=== PATIENT | male | born 1955 | race American Indian/Alaskan Native ===

== ENCOUNTER 2017-06-06 17:43 | Inpatient (IN) | payer MEDICARE, OTHER ==
[2017-06-06] MEDS ORDERED: Sodium Chloride 0.9% 1,000 ML IV STA (18:27)
--- NOTE | 2017-06-06 18:27 | C.PDOC ---
History Of Present Illness 62 y/o M NHR c PMHx HIV, COPD, HTN, CVA with residual R sided weakness sent from [place] for finding of pneumonia on CXR. Patient has been having cough productive of sputum, subjective fever. Denies pain, dyspnea, vomiting, diarrhea. Reports poor appetite and general weakness. Time Seen by Provider: 06/06/17 18:02 Chief Complaint (Nursing): Cough, Cold, Congestion Past Medical History Vital Signs: Last Vital Signs Temp 97.8 F 06/06/17 18:01 Pulse 74 06/06/17 18:01 Resp 21 06/06/17 18:01 BP 127/78 06/06/17 18:01 Pulse Ox 98 06/06/17 18:26 Family History: States: No Known Family Hx Review Of Systems Except As Marked, All Systems Reviewed And Found Negative. Cardiovascular: Negative for: Chest Pain Respiratory: Negative for: Shortness of Breath Physical Exam - Physical Exam Additional Physical Exam Comments: Constitutional: No acute distress. Head: Normocephalic. Atraumatic. Eyes: PERRL. EOMI. ENT: Dry mucous membranes. Neck: Supple. Cardiovascular: Regular rate. Radial pulses 2+ bilaterally. Chest: No tenderness. Respiratory: Rhonchi at RLL. GI: Soft. Nontender. Back: No CVA tenderness. Musculoskeletal: No tenderness or swelling of extremities. Skin: No rash. Neurologic: Alert, R motor weakness. ED Course And Treatment - Laboratory Results Result Diagrams: 06/06/17 18:34 06/06/17 18:34 O2 Sat by Pulse Oximetry: 98 Medical Decision Making Medical Decision Making: CXR shows patchy infiltrate of RLL. Mild leukocytosis. Dr. Hampton accepts patient to her service. Disposition Discussed With : Karen Hampton Doctor Will See Patient In The: Hospital - Disposition Disposition: HOSPITALIZED Disposition Time: 21:24 Condition: GUARDED Forms: [employer] (Faroese) - POA Core Measure Indicators: Pneumonia - Clinical Impression Clinical Impression: Pneumonia
[2017-06-06] MEDS ORDERED: Azithromycin 500 MG in Sodium Chloride 0.9% 250 ML IVPB STA (18:28)
[2017-06-06] MEDS ORDERED: Sodium Chloride 0.9% 1,000 ML ONE (18:36)
[2017-06-06 18:42] LABS: BASO % 0.3 % (0.0-2.0); EOS # 0.1 K/uL (0.0-0.7); EOS % 0.5 % (0.0-4.0); HEMOGLOBIN 15.3 g/dL (12.0-18.0); LYMPH % 25.1 % (20.0-40.0); MEAN CELL VOLUME 97.6 fL (80.0-94.0); MEAN CORPUSCULAR HEMOGLOBIN 32.8 pg (27.0-31.0); MEAN CORPUSCULAR HGB CONC 33.6 g/dL (33.0-37.0); MEAN PLATELET VOLUME 8.8 fL (7.2-11.7); MONO # 0.9 K/uL (0.0-0.8); MONO % 7.3 % (0.0-10.0); NEUT % 66.8 % (50.0-75.0); NRBC % 0.2 % (0.0-2.0); RBC 4.68 Mil/uL (4.40-5.90); RED CELL DISTRIBUTION WIDTH 13.8 % (11.5-14.5); WHITE BLOOD COUNT 11.9 K/uL (4.8-10.8)
[2017-06-06 18:52] LABS: CALCIUM 9.4 mg/dl (8.6-10.4)
[2017-06-06 18:55] LABS: INR 1.2; PROTHROMBIN TIME 13.8 SECONDS (9.7-12.2)
[2017-06-06 18:56] LABS: ALB/GLOB RATIO 0.7 (1.0-2.1)
[2017-06-06] MEDS ORDERED: DiphenhydrAMINE 50 mg/ml Inj IVP STA (20:20)
[2017-06-06] MEDS ORDERED: DiphenhydrAMINE 50 mg/ml Inj ONE (20:27)
[2017-06-06 20:48] LABS: SQUAMOUS EPITHIAL 2 /hpf (0-5); URINE BACTERIA RARE (<OCC); URINE BILIRUBIN NEGATIVE (NEGATIVE); URINE BLOOD 2+ (NEGATIVE); URINE CLARITY Clear (Clear); URINE COLOR Yellow (YELLOW); URINE GLUCOSE (UA) NORMAL (Normal); URINE LEUKOCYTE ESTERASE TRACE Leu/uL (Negative); URINE NITRATE NEGATIVE (NEGATIVE); URINE PROTEIN 2+ mg/dL (NEGATIVE)
[2017-06-06] MEDS ORDERED: cefTRIAXone IV 1 gm in Dextros 50 ML IVPB ONE ×2 (21:22→21:48)
[2017-06-07 00:21] VITALS: RESP 20
--- NOTE | 2017-06-07 08:03 | RAD ---
HISTORY: cough COMPARISON: No prior. TECHNIQUE: Chest PA and lateral FINDINGS: LUNGS: Heterogeneous lucency is seen scattered throughout the bilateral lung fried combine with fibrotic changes and flattening the bilateral hemidiaphragms. Anteroposterior extension of the chest is also appreciated. The findings indicate COPD. Fibrosis of the bilateral costophrenic sulci is favored over trace pleural effusions. No pneumothorax bilaterally. No definite alveolar infiltrate grossly appreciable. Reticular markings at the mid right chest are somewhat more prominent than throughout the remainder of both lung fried to this may be a chronic feature. Acute interstitial process is not completely excluded. Clinically correlate further. PLEURA: As above. CARDIOVASCULAR: Normal size heart. Attenuation of the peripheral pulmonary arterial pattern may indicate pulmonary artery hypertension. OSSEOUS STRUCTURES: No significant abnormalities. VISUALIZED UPPER ABDOMEN: Normal. OTHER FINDINGS: None. IMPRESSION: Extensive COPD changes are identified. Fibrosis is favored over trace effusions blunting the bilateral costophrenic sulci. Promise of reticular markings in the mid right chest may be chronic but an acute interstitial process not excluded here.
--- NOTE | 2017-06-07 11:00 | CARD ---
APPROVED REPORT EKG Measurement Heart [id number] <Conclusion> Normal sinus rhythm Normal ECG
[2017-06-07 12:25] LABS: BLOOD UREA NITROGEN 32 mg/dL (9-20); CALCIUM 8.5 mg/dl (8.6-10.4); GFR AFRICAN-AMERICAN > 60; GFR NON-AFRICAN AMERICAN 56
[2017-06-07] MEDS ORDERED: Benzocaine/Menthol (Cepacol) Lozenge PO PRN (12:40)
[2017-06-07] MEDS: guaiFENesin 100 mg/5 ml Syrup UD PO PRN (13:45)
--- NOTE | 2017-06-07 16:37 | CP.PCM.CON ---
History of Present Illness - History of Present Illness History of Present Illness: 62 y/o M NHR c PMHx HIV, COPD, HTN, CVA with residual R sided weakness sent from [place] for finding of pneumonia on CXR. Patient has been having cough productive of sputum, subjective fever. Denies pain, dyspnea, vomiting, diarrhea. Reports poor appetite and general weakness. Family History: States: No Known Family Hx Review Of Systems Except As Marked, All Systems Reviewed And Found Negative. Cardiovascular: Negative for: Chest Pain Respiratory: Negative for: Shortness of Breath Review of Systems - Constitutional Constitutional: As Per HPI - EENT Eyes: absent: As Per HPI, Blind Spots, Blurred Vision, Change in Vision, Decreased Night Vision, Diplopia, Discharge, Dry Eye, Exophthalmos, Floaters, Irritation, Itchy Eyes, Loss of Peripheral Vision, Pain, Photophobia, Requires Corrective Lenses, Sees Flashes, Spots in Vision, Tunnel Vision, Other Visual Disturbances, Loss of Vision, Other Ears: absent: As Per HPI, Decreased Hearing, Ear Discharge, Ear Pain, Tinnitus, Abnormal Hearing, Disequilibrium, Dizziness, Other Nose/Mouth/Throat: absent: As Per HPI, Epistaxis, Nasal Congestion, Nasal Discharge, Nasal Obstruction, Nasal Trauma, Nose Pain, Post Nasal Drip, Sinus Pain, Sinus Pressure, Bleeding Gums, Change in Voice, Dental Pain, Dry Mouth, Dysphagia, Halitosis, Hoarsness, Lip Swelling, Mouth Lesions, Mouth Pain, Odynophagia, Sore Throat, Throat Swelling, Tongue Swelling, Facial Pain, Neck Pain, Neck Mass, Other - Cardiovascular Cardiovascular: absent: As Per HPI, Acrocyanosis, Chest Pain, Chest Pain at Rest , Chest Pain with Activity, Claudication, Diaphoresis, Dyspnea, Dyspnea on Exertion, Edema, Irregular Heart Rhythm, Pain Radiating to Arm/Neck/Jaw, Leg Edema, Leg Ulcers, Lightheadedness, Orthopnea, Palpitations, Paroxysmal Nocturnal Dyspnea, Pedal Edema, Radiating Pain, Rapid Heart Rate, Slow Heart Rate, Syncope, Other - Respiratory Respiratory: As Per HPI - Gastrointestinal Gastrointestinal: absent: As Per HPI, Abdominal Pain, Belching, Bloating, Change in Bowel Habits, Change in Stool Character, Coffee Ground Emesis, Constipation, Cramping, Diarrhea, Dyspepsia, Dysphagia, Early Satiety, Excessive Flatus, Fecal Incontinence, Heartburn, Hematemesis, Hematochezia, Loose Stools, Melena, Nausea, Odynophagia, Temesmus, Vomiting, Other - Genitourinary Genitourinary: absent: As Per HPI, Change in Urinary Stream, Difficulty Urinating, Dysuria, Flank Pain, Hematuria, Pyuria, Nocturia, Urinary Incontinence, Urinary Frequency, Urinary Hesitance, Urinary Urgency, Voiding Freq/Small Amts, Freq UTI, Hx Renal/Bladder Calculi, Hx /Renal Surgery, Bladder Distension, Other - Musculoskeletal Musculoskeletal: absent: As Per HPI, Abnormal Gait, Arthralgias, Atrophy, Back Pain, Deformity, Joint Swelling, Limited Range of Motion, Loss of Height, Muscle Cramps, Muscle Weakness, Myalgias, Neck Pain, Numbness, Radiating Pain into Limb, Stiffness, Tingling, Other - Integumentary Integumentary: absent: As Per HPI, Acne, Alopecia, Bleeding Lesions, Change in Hair, Change in Nails, Change in Pigmentation, Changing Lesions, Dry Skin, Erythema, Furuncle, Hirsutism, Lesions, New Lesions, Non-Healing Lesions, Photosensitivity, Pruritus, Rash, Skin Pain, Skin Ulcer, Sores, Striae, Swelling , Unusual Bruising, Wounds, Jaundice, Other - Neurological Neurological: absent: As Per HPI, Abnormal Gait, Abnormal Hearing, Abnormal Movements, Abnormal Speech, Behavioral Changes, Burning Sensations, Confusion, Convulsions, Disequilibrium, Dizziness, Numbness, Focal Weakness, Frequent Falls , Headaches, Lack of Coordination, Loss of Vision, Memory Loss, Paresthesias, Radicular Pain, Restless Legs, Sensory Deficit, Syncope, Tingling, Tremor, Vertigo, Weakness, Other Visual Disturbances, Other - Psychiatric Psychiatric: absent: As Per HPI, Abnormal Sleep Pattern, Anhedonia, Anxiety, Auditory Hallucinations, Behavioral Changes, Change in Appetite, Change in Libido, Confusion, Depression, Difficulty Concentrating, Hallucinations, Homicidal Ideation, Hopelessness, Irritability, Memory Loss, Mood Swings, Panic Attacks, Paranoia, Suicidal Ideation, Visual Hallucinations, Tactile Hallucinations, Other - Endocrine Endocrine: absent: As Per HPI, Change in Body Appearance, Change in Libido, Cold Intolorance, Deepening of Voice, Excessive Sweating, Fatigue, Flushing, Heat Intolorance, Increase in Ring/Shoe/Hat Size, Palpitations, Polydipsia, Polyphagia, Polyuria, Other Past Patient History - Past Medical History & Family History Past Medical History?: Yes - Past Social History Smoking Status: Current Some Days Smoker - PULMONARY Hx Respiratory Disorders: Yes Hx Chronic Obstructive Pulmonary Disease (COPD): Yes - NEUROLOGICAL Hx Neurological Disorder: Yes HX Cerebrovascular Accident: Yes (right side weakness) - HEENT Hx HEENT Problems: No - RENAL Hx Chronic Kidney Disease: Yes Hx Renal Failure: Yes - ENDOCRINE/METABOLIC Hx Endocrine Disorders: No - HEMATOLOGICAL/ONCOLOGICAL Hx Blood Disorders: Yes Hx Hepatitis C: Yes Hx Human Immunodeficiency Virus (HIV): Yes - MUSCULOSKELETAL/RHEUMATOLOGICAL Hx Falls: No - GASTROINTESTINAL Hx Gastrointestinal Disorders: No - GENITOURINARY/GYNECOLOGICAL Hx Genitourinary Disorders: No - PSYCHIATRIC Hx Psychophysiologic Disorder: No Hx Substance Use: No - SURGICAL HISTORY Hx Surgeries: Yes Other/Comment: right kidney removal - ANESTHESIA Hx Anesthesia: Yes Hx Anesthesia Reactions: No Meds Allergies/Adverse Reactions: Allergies Allergy/AdvReac Type Severity Reaction Status Date / Time No Known Allergies Allergy Verified 06/06/17 18:13 - Medications Medications: Current Medications Abacavir/Lamivudine (Epzicom) 1 tab PO DAILY [facility] Aspirin (Aspirin Chewable) 81 mg PO DAILY [facility] Benzocaine/Menthol (Cepacol Sore Throat) 1 emilee PO Q6H PRN PRN Reason: Sore Throat Last Admin: 06/07/17 13:46 Dose: 1 emilee Citalopram Hydrobromide (Celexa) 10 mg PO DAILY [facility] Clopidogrel Bisulfate (Plavix) 75 mg PO DAILY [facility] Docusate Sodium (Colace) 100 mg PO DAILY [facility] Guaifenesin (Robitussin) 100 mg PO Q4H PRN PRN Reason: Cough Last Admin: 06/07/17 13:45 Dose: 100 mg Heparin Sodium (Porcine) (Heparin) 5,000 units SC Q12 [facility] Last Admin: 06/07/17 09:25 Dose: 5,000 units Ceftriaxone Sodium 1 gm/ (Sodium Chloride) 100 mls @ 100 mls/hr IVPB Q12H [facility] Last Admin: 06/07/17 11:30 Dose: 100 mls/hr Azithromycin 500 mg/ Dextrose 250 mls @ 167 mls/hr IVPB Q24H [facility] Last Admin: 06/07/17 10:33 Dose: 167 mls/hr Metoprolol Tartrate (Lopressor) 25 mg PO Q12H [facility] Pneumococcal Polyvalent Vaccine (Pneumovax 23 Vaccine) 0.5 ml IM .ONCE ONE Stop: 06/09/17 10:01 Raltegravir (Isentress) 400 mg PO BID [facility] Tramadol HCl (Ultram) 50 mg PO TID PRN PRN Reason: Pain, severe (8-10) Zolpidem Tartrate (Ambien) 5 mg PO HS [facility] Physical Exam - Constitutional Appears: Non-toxic, Cachectic, Chronically Ill - Head Exam Head Exam: NORMOCEPHALIC - Eye Exam Eye Exam: PERRL. absent: Scleral icterus - ENT Exam ENT Exam: Mucous Membranes Dry - Neck Exam Neck exam: Negative for: Lymphadenopathy - Respiratory Exam Respiratory Exam: Decreased Breath Sounds, Rhonchi - Cardiovascular Exam Cardiovascular Exam: REGULAR RHYTHM, +S1, +S2 - GI/Abdominal Exam GI & Abdominal Exam: Diminished Bowel Sounds, Soft. absent: Tenderness - Rectal Exam Rectal Exam: Deferred - Exam Exam: NORMAL INSPECTION - Extremities Exam Extremities exam: Negative for: pedal edema - Back Exam Back exam: absent: CVA tenderness (L), CVA tenderness (R) - Neurological Exam Neurological exam: Alert, CN II-XII Intact, Oriented x3, Reflexes Normal - Psychiatric Exam Psychiatric exam: Normal Mood - Skin Skin Exam: Dry Results - Vital Signs Recent Vital Signs: Last Vital Signs Temp 97.2 F L 06/07/17 08:41 Pulse 69 06/07/17 08:41 Resp 20 06/07/17 08:41 BP 125/84 06/07/17 08:41 Pulse Ox 96 06/07/17 08:41 - Labs Result Diagrams: 06/06/17 18:34 06/07/17 11:46 Labs: Laboratory Results - last 24 hr 06/06/17 06/06/17 06/06/17 18:34 18:34 18:34 WBC 11.9 H RBC 4.68 Hgb 15.3 Hct 45.7 MCV 97.6 H MCH 32.8 H MCHC 33.6 RDW 13.8 Plt Count 225 MPV 8.8 Neut % (Auto) 66.8 Lymph % (Auto) 25.1 [place] % (Auto) 7.3 Eos % (Auto) 0.5 Baso % (Auto) 0.3 Neut # 8.0 H Lymph # 3.0 [place] # 0.9 H Eos # 0.1 Baso # 0.0 PT 13.8 H INR 1.2 APTT 28 Sodium 138 Potassium 4.5 Chloride 105 Carbon Dioxide 22 Anion Gap 15 BUN 48 H Creatinine 2.1 H Est GFR ( Amer) 39 Est GFR (Non-Af Amer) 32 POC Glucose (mg/dL) Random Glucose 91 Calcium 9.4 Total Bilirubin 1.4 H AST 78 H ALT 62 Alkaline Phosphatase 57 Total Protein 9.5 H Albumin 4.0 Globulin 5.4 H Albumin/Globulin Ratio 0.7 L Urine Color Urine Clarity Urine pH Ur Specific [place] Urine Protein Urine Glucose (UA) Urine Ketones Urine Blood Urine Nitrate Urine Bilirubin Urine Urobilinogen Ur Leukocyte Esterase Urine WBC (Auto) Urine RBC (Auto) Ur Squamous Epith Cells Ur Transition Epith Cell Urine Bacteria 06/06/17 06/07/17 06/07/17 20:32 07:15 11:07 WBC RBC Hgb Hct MCV MCH MCHC RDW Plt Count MPV Neut % (Auto) Lymph % (Auto) [place] % (Auto) Eos % (Auto) Baso % (Auto) Neut # Lymph # [place] # Eos # Baso # PT INR APTT Sodium Potassium Chloride Carbon Dioxide Anion Gap BUN Creatinine Est GFR ( Amer) Est GFR (Non-Af Amer) POC Glucose (mg/dL) 78 114 H Random Glucose Calcium Total Bilirubin AST ALT Alkaline Phosphatase Total Protein Albumin Globulin Albumin/Globulin Ratio Urine Color Yellow Urine Clarity Clear Urine pH 5.0 Ur Specific [place] 1.024 Urine Protein 2+ H Urine Glucose (UA) Normal Urine Ketones Trace Urine Blood 2+ H Urine Nitrate Negative Urine Bilirubin Negative Urine Urobilinogen 2.0 Ur Leukocyte Esterase Trace Urine WBC (Auto) 4 Urine RBC (Auto) 13 H Ur Squamous Epith Cells 2 Ur Transition Epith Cell < 1 Urine Bacteria Rare 06/07/17 06/07/17 11:46 16:11 WBC RBC Hgb Hct MCV MCH MCHC RDW Plt Count MPV Neut % (Auto) Lymph % (Auto) [place] % (Auto) Eos % (Auto) Baso % (Auto) Neut # Lymph # [place] # Eos # Baso # PT INR APTT Sodium 139 Potassium 3.8 Chloride 110 H Carbon Dioxide 20 L Anion Gap 13 BUN 32 H Creatinine 1.3 Est GFR ( Amer) > 60 Est GFR (Non-Af Amer) 56 POC Glucose (mg/dL) 77 Random Glucose 117 H Calcium 8.5 L Total Bilirubin AST ALT Alkaline Phosphatase Total Protein Albumin Globulin Albumin/Globulin Ratio Urine Color Urine Clarity Urine pH Ur Specific [place] Urine Protein Urine Glucose (UA) Urine Ketones Urine Blood Urine Nitrate Urine Bilirubin Urine Urobilinogen Ur Leukocyte Esterase Urine WBC (Auto) Urine RBC (Auto) Ur Squamous Epith Cells Ur Transition Epith Cell Urine Bacteria Assessment & Plan (1) AIDS Status: Acute (2) Pneumonia Status: Acute - Assessment and Plan (Free Text) Assessment: add bactrim check t cells hold kaletra add isentress
--- NOTE | 2017-06-07 23:13 | CP.PCM.PN ---
Subjective - Date & Time of Evaluation Date of Evaluation: 06/07/17 Time of Evaluation: 09:00 Objective - Vital Signs/Intake and Output Vital Signs (last 24 hours): Temp Pulse Resp BP Pulse Ox 98.2 F 69 20 125/64 96 06/07/17 16:00 06/07/17 16:28 06/07/17 16:00 06/07/17 17:47 06/07/17 16:28 Intake and Output: 06/07/17 06/08/17 18:59 06:59 Intake Total 950 Balance 950 - Medications Medications: Current Medications Abacavir/Lamivudine (Epzicom) 1 tab PO DAILY [facility] Aspirin (Aspirin Chewable) 81 mg PO DAILY [facility] Benzocaine/Menthol (Cepacol Sore Throat) 1 emilee PO Q6H PRN PRN Reason: Sore Throat Last Admin: 06/07/17 13:46 Dose: 1 emilee Citalopram Hydrobromide (Celexa) 10 mg PO DAILY [facility] Clopidogrel Bisulfate (Plavix) 75 mg PO DAILY [facility] Docusate Sodium (Colace) 100 mg PO DAILY [facility] Guaifenesin (Robitussin) 100 mg PO Q4H PRN PRN Reason: Cough Last Admin: 06/07/17 13:45 Dose: 100 mg Heparin Sodium (Porcine) (Heparin) 5,000 units SC Q12 [facility] Last Admin: 06/07/17 21:00 Dose: 5,000 units Ceftriaxone Sodium 1 gm/ (Sodium Chloride) 100 mls @ 100 mls/hr IVPB Q12H [facility] Last Admin: 06/07/17 21:00 Dose: 100 mls/hr Azithromycin 500 mg/ Dextrose 250 mls @ 167 mls/hr IVPB Q24H [facility] Last Admin: 06/07/17 10:33 Dose: 167 mls/hr Metoprolol Tartrate (Lopressor) 25 mg PO Q12H [facility] Last Admin: 06/07/17 17:47 Dose: 25 mg Pneumococcal Polyvalent Vaccine (Pneumovax 23 Vaccine) 0.5 ml IM .ONCE ONE Stop: 06/09/17 10:01 Raltegravir (Isentress) 400 mg PO BID [facility] Last Admin: 06/07/17 18:00 Dose: 400 mg Tramadol HCl (Ultram) 50 mg PO TID PRN PRN Reason: Pain, severe (8-10) Zolpidem Tartrate (Ambien) 5 mg PO HS [facility] Last Admin: 06/07/17 20:52 Dose: 5 mg - Labs Labs: 06/06/17 18:34 06/07/17 11:46 PT 13.8 SECONDS (9.7-12.2) H 06/06/17 18:34 INR 1.2 06/06/17 18:34 APTT 28 SECONDS (21-34) 06/06/17 18:34
--- NOTE | 2017-06-07 23:17 | CP.PCM.HP ---
<Susie Ta - Last Filed: 06/08/17 20:32> History of Present Illness - History of Present Illness History of Present Illness: Chief complaint: cough, cold, congestion 62 yr male w/ history of HIV, COPD, HTN, CVA, & R sided weakness. 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 Pt was seen at the bedside on 06/07/17. He reports shortness of breath. He states that he smokes 5- 6 cigarettes daily and refused nicotine patch or smoking cessation assistance. He denies any fever, chills, n/v, diarrhea, constipation, urinary changes or distress. Present on Admission - Present on Admission Any Indicators Present on Admission: Yes History of DVT/PE: No History of Uncontrolled Diabetes: No Urinary Catheter: No Decubitus Ulcer Present: No Review of Systems - Constitutional Constitutional: As Per HPI - EENT Eyes: As Per HPI Ears: As Per HPI Nose/Mouth/Throat: As Per HPI - Cardiovascular Cardiovascular: As Per HPI - Respiratory Respiratory: As Per HPI - Gastrointestinal Gastrointestinal: As Per HPI - Genitourinary Genitourinary: As Per HPI - Reproductive: Male Reproductive:Male: As Per HPI - Musculoskeletal Musculoskeletal: As Per HPI - Integumentary Integumentary: As Per HPI - Neurological Neurological: As Per HPI - Psychiatric Psychiatric: As Per HPI - Endocrine Endocrine: As Per HPI - Hematologic/Lymphatic Hematologic: As Per HPI Past Patient History - Past Medical History & Family History Past Medical History?: Yes - Past Social History Smoking Status: Current Some Days Smoker - PULMONARY Hx Respiratory Disorders: Yes Hx Chronic Obstructive Pulmonary Disease (COPD): Yes - NEUROLOGICAL Hx Neurological Disorder: Yes HX Cerebrovascular Accident: Yes (right side weakness) - HEENT Hx HEENT Problems: No - RENAL Hx Chronic Kidney Disease: Yes Hx Renal Failure: Yes - ENDOCRINE/METABOLIC Hx Endocrine Disorders: No - HEMATOLOGICAL/ONCOLOGICAL Hx Blood Disorders: Yes Hx Hepatitis C: Yes Hx Human Immunodeficiency Virus (HIV): Yes - MUSCULOSKELETAL/RHEUMATOLOGICAL Hx Falls: No - GASTROINTESTINAL Hx Gastrointestinal Disorders: No - GENITOURINARY/GYNECOLOGICAL Hx Genitourinary Disorders: No - PSYCHIATRIC Hx Psychophysiologic Disorder: No Hx Substance Use: No - SURGICAL HISTORY Hx Surgeries: Yes Other/Comment: right kidney removal - ANESTHESIA Hx Anesthesia: Yes Hx Anesthesia Reactions: No Meds Allergies/Adverse Reactions: Allergies Allergy/AdvReac Type Severity Reaction Status Date / Time No Known Allergies Allergy Verified 06/06/17 18:13 Physical Exam - Constitutional Appears: Older Than Stated Age - Head Exam Head Exam: ATRAUMATIC, NORMAL INSPECTION, NORMOCEPHALIC - Eye Exam Eye Exam: EOMI, Normal appearance, PERRL Pupil Exam: NORMAL ACCOMODATION, PERRL - ENT Exam ENT Exam: Mucous Membranes Moist, Normal Exam - Neck Exam Neck exam: Positive for: Normal Inspection - Respiratory Exam Respiratory Exam: Decreased Breath Sounds, Rhonchi - Cardiovascular Exam Cardiovascular Exam: REGULAR RHYTHM, +S1, +S2 - GI/Abdominal Exam GI & Abdominal Exam: Normal Bowel Sounds, Soft. absent: Tenderness - Extremities Exam Additional comments: R hand contracture. R upper extremity weakness. - Neurological Exam Neurological exam: Alert, Motor Sensory Deficit, Oriented x3 - Psychiatric Exam Psychiatric exam: Normal Affect, Normal Mood - Skin Skin Exam: Dry Results - Vital Signs Recent Vital Signs: Last Vital Signs Temp 98.2 F 06/07/17 16:00 Pulse 69 06/07/17 16:28 Resp 20 06/07/17 16:00 BP 125/64 06/07/17 17:47 Pulse Ox 96 06/07/17 16:28 - Labs Result Diagrams: 06/08/17 04:00 06/08/17 07:23 Labs: Laboratory Results - last 24 hr 06/07/17 06/07/17 06/07/17 07:15 11:07 11:46 Sodium 139 Potassium 3.8 Chloride 110 H Carbon Dioxide 20 L Anion Gap 13 BUN 32 H Creatinine 1.3 Est GFR ( Amer) > 60 Est GFR (Non-Af Amer) 56 POC Glucose (mg/dL) 78 114 H Random Glucose 117 H Calcium 8.5 L 06/07/17 06/07/17 16:11 21:26 Sodium Potassium Chloride Carbon Dioxide Anion Gap BUN Creatinine Est GFR ( Amer) Est GFR (Non-Af Amer) POC Glucose (mg/dL) 77 99 Random Glucose Calcium Assessment & Plan (1) Hypochloremia Status: Acute (2) Dehydration Status: Acute (3) Hyperglycemia Status: Acute (4) Hypocalcemia Status: Acute (5) Hematuria Status: Acute (6) Proteinuria Status: Acute (7) Leukocytosis Status: Acute (8) AIDS Status: Acute (9) Pneumonia Status: Acute - Assessment and Plan (Free Text) Plan: Epzicom PO. IV rocephin & azithromycn. GI/VTE prophlyaxis ordered. Urine culture NEGATIVE. Blood cultures NEGATIVE. Labs ordered. PT/OT on board. Consults: ID - Dr. Lujan/ Dr. Osei Reviewed: CXR = extensive COPD changes. fibrosis, chronic vs. acute intersitial process ECG = NSR - Date & Time Date: 06/07/17 Time: 09:00 <Karen Hampton - Last Filed: 06/09/17 10:47> Results - Vital Signs Recent Vital Signs: Last Vital Signs Temp 97.9 F 06/09/17 08:00 Pulse 58 L 06/09/17 08:00 Resp 20 06/09/17 08:00 BP 118/78 06/09/17 08:00 Pulse Ox 96 06/09/17 08:00 - Labs Result Diagrams: 06/09/17 08:19 06/09/17 08:19 Labs: Laboratory Results - last 24 hr 06/08/17 06/08/17 06/08/17 11:25 16:14 21:00 WBC RBC Hgb Hct MCV MCH MCHC RDW Plt Count MPV Sodium Potassium Chloride Carbon Dioxide Anion Gap BUN Creatinine Est GFR ( Amer) Est GFR (Non-Af Amer) POC Glucose (mg/dL) 86 99 95 Random Glucose Calcium Total Bilirubin AST ALT Alkaline Phosphatase Total Protein Albumin Globulin Albumin/Globulin Ratio 06/09/17 06/09/17 06/09/17 07:07 08:19 08:19 WBC 4.8 RBC 4.05 L Hgb 13.7 Hct 39.7 MCV 97.9 H MCH 33.8 H MCHC 34.5 RDW 13.6 Plt Count 216 MPV 8.9 Sodium 140 Potassium 3.7 Chloride 113 H Carbon Dioxide 21 L Anion Gap 11 BUN 18 Creatinine 1.2 Est GFR ( Amer) > 60 Est GFR (Non-Af Amer) > 60 POC Glucose (mg/dL) 95 Random Glucose 87 Calcium 8.7 Total Bilirubin 0.6 AST 68 H ALT 56 Alkaline Phosphatase 48 Total Protein 7.6 Albumin 3.2 L Globulin 4.4 H Albumin/Globulin Ratio 0.7 L Assessment & Plan - Assessment and Plan (Free Text) Plan: 64 yr female w/ history of gastric bypass 8 yrs ago (no relief w/ omeprazole), anemia, arthritis, DM, gastritis, HTN, Hypercholesterolemia, osteoporosis, appendectomy, & cholecystectomy. Pt was seen at the bedside on . Reports ongoing abdominal pain for 15 days. She states that this happens from time to time and when she has an endoscopy she feels better. She rates her pain 5/10 in the epigastric area. She denies any fever, chills, n/v, diarrhea, constipation, urinary changes or distress. pt is seen and examined at bed side , looking comfortable , getting i/v anb , as per id . agreed all above . chart , meds and labs noted
[2017-06-08 07:39] LABS: BASO % 0.5 % (0.0-2.0); EOS # 0.1 K/uL (0.0-0.7); EOS % 1.5 % (0.0-4.0); HEMOGLOBIN 13.5 g/dL (12.0-18.0); MEAN CELL VOLUME 98.1 fL (80.0-94.0); MEAN CORPUSCULAR HEMOGLOBIN 33.3 pg (27.0-31.0); MEAN PLATELET VOLUME 8.9 fL (7.2-11.7); MONO # 0.5 K/uL (0.0-0.8); MONO % 9.8 % (0.0-10.0); NEUT # 1.7 K/uL (1.8-7.0); NEUT % 32.2 % (50.0-75.0); NRBC % 0.2 % (0.0-2.0); RBC 4.04 Mil/uL (4.40-5.90); RED CELL DISTRIBUTION WIDTH 13.5 % (11.5-14.5)
[2017-06-08 07:49] LABS: WHITE BLOOD COUNT 5.4 K/uL (4.8-10.8)
[2017-06-08 08:17] LABS: BLOOD UREA NITROGEN 23 mg/dL (9-20); CALCIUM 8.8 mg/dl (8.6-10.4); GFR AFRICAN-AMERICAN > 60; GFR NON-AFRICAN AMERICAN 56
[2017-06-08] MEDS: Abacavir/Lamivudine 600 mg-300 mg Tab PO SCH (09:28)
[2017-06-08] MEDS ORDERED: LOPINAVIR PO SCH (10:00)
[2017-06-08] MEDS ORDERED: RITONAVIR PO SCH (10:00)
[2017-06-09] MEDS: guaiFENesin 100 mg/5 ml Syrup UD PO PRN ×3 (05:20→22:16)
[2017-06-09 08:43] LABS: HEMOGLOBIN 13.7 g/dL (12.0-18.0); MEAN CELL VOLUME 97.9 fL (80.0-94.0); MEAN CORPUSCULAR HEMOGLOBIN 33.8 pg (27.0-31.0); MEAN CORPUSCULAR HGB CONC 34.5 g/dL (33.0-37.0); MEAN PLATELET VOLUME 8.9 fL (7.2-11.7); RBC 4.05 Mil/uL (4.40-5.90); RED CELL DISTRIBUTION WIDTH 13.6 % (11.5-14.5); WHITE BLOOD COUNT 4.8 K/uL (4.8-10.8)
[2017-06-09 09:04] LABS: ALB/GLOB RATIO 0.7 (1.0-2.1); ALBUMIN 3.2 g/dL (3.5-5.0); ALT/SGPT 56 U/L (21-72); AST/SGOT 68 U/L (17-59); BLOOD UREA NITROGEN 18 mg/dL (9-20); CALCIUM 8.7 mg/dl (8.6-10.4); GFR AFRICAN-AMERICAN > 60; GFR NON-AFRICAN AMERICAN > 60
[2017-06-09] MEDS: Abacavir/Lamivudine 600 mg-300 mg Tab PO SCH (10:06)
[2017-06-09] MEDS: Pneumococcal 23-Valent Vaccine IM ONE ×2 (10:10→10:16)
--- NOTE | 2017-06-09 15:27 | CP.PCM.PN ---
Subjective - Date & Time of Evaluation Date of Evaluation: 06/09/17 Time of Evaluation: 09:00 - Subjective Subjective: weak coughing nad Objective - Vital Signs/Intake and Output Vital Signs (last 24 hours): Temp Pulse Resp BP Pulse Ox 97.9 F 58 L 20 118/78 96 06/09/17 08:00 06/09/17 08:00 06/09/17 08:00 06/09/17 08:00 06/09/17 08:00 Intake and Output: 06/09/17 06/09/17 06:59 18:59 Intake Total 430 830 Balance 430 830 - Medications Medications: Current Medications Abacavir/Lamivudine (Epzicom) 1 tab PO DAILY [facility] Last Admin: 06/09/17 10:06 Dose: 1 tab Aspirin (Aspirin Chewable) 81 mg PO DAILY [facility] Last Admin: 06/09/17 10:06 Dose: 81 mg Benzocaine/Menthol (Cepacol Sore Throat) 1 emilee PO Q6H PRN PRN Reason: Sore Throat Last Admin: 06/07/17 13:46 Dose: 1 emilee Citalopram Hydrobromide (Celexa) 10 mg PO DAILY [facility] Last Admin: 06/09/17 10:07 Dose: 10 mg Clopidogrel Bisulfate (Plavix) 75 mg PO DAILY [facility] Last Admin: 06/09/17 10:06 Dose: 75 mg Docusate Sodium (Colace) 100 mg PO DAILY [facility] Last Admin: 06/09/17 10:06 Dose: 100 mg Guaifenesin (Robitussin) 100 mg PO Q4H PRN PRN Reason: Cough Last Admin: 06/09/17 10:22 Dose: 100 mg Heparin Sodium (Porcine) (Heparin) 5,000 units SC Q12 [facility] Last Admin: 06/09/17 10:06 Dose: 5,000 units Ceftriaxone Sodium 1 gm/ (Sodium Chloride) 100 mls @ 100 mls/hr IVPB Q12H [facility] Last Admin: 06/09/17 10:07 Dose: 100 mls/hr Azithromycin 500 mg/ Dextrose 250 mls @ 167 mls/hr IVPB Q24H [facility] Last Admin: 06/09/17 11:15 Dose: 167 mls/hr Metoprolol Tartrate (Lopressor) 25 mg PO Q12H [facility] Last Admin: 06/09/17 05:20 Dose: 25 mg Raltegravir (Isentress) 400 mg PO BID [facility] Last Admin: 06/09/17 10:06 Dose: 400 mg Tramadol HCl (Ultram) 50 mg PO TID PRN PRN Reason: Pain, severe (8-10) Zolpidem Tartrate (Ambien) 5 mg PO HS [facility] Last Admin: 06/08/17 21:28 Dose: 5 mg - Labs Labs: 06/09/17 08:19 06/09/17 08:19 PT 13.8 SECONDS (9.7-12.2) H 06/06/17 18:34 INR 1.2 06/06/17 18:34 APTT 28 SECONDS (21-34) 06/06/17 18:34 - Constitutional Appears: Non-toxic, Cachectic, Chronically Ill - Head Exam Head Exam: NORMOCEPHALIC - Eye Exam Eye Exam: PERRL. absent: Nystagmus, Scleral icterus - ENT Exam ENT Exam: Mucous Membranes Dry - Neck Exam Neck Exam: absent: Lymphadenopathy, Thyromegaly - Respiratory Exam Respiratory Exam: Decreased Breath Sounds - Cardiovascular Exam Cardiovascular Exam: REGULAR RHYTHM - GI/Abdominal Exam GI & Abdominal Exam: Distended, Soft. absent: Tenderness - Rectal Exam Rectal Exam: Deferred - Exam Exam: NORMAL INSPECTION - Extremities Exam Extremities Exam: absent: Pedal Edema - Back Exam Back Exam: absent: CVA tenderness (L), CVA tenderness (R) - Neurological Exam Neurological Exam: Alert, Awake, Normal Gait, Oriented x3 Neuro motor strength exam: Left Upper Extremity: 5, Right Upper Extremity: 5, Left Lower Extremity: 5, Right Lower Extremity: 5 Assessment and Plan (1) AIDS Status: Acute (2) Pneumonia Status: Acute - Assessment and Plan (Free Text) Assessment: await t cells add bactrim
[2017-06-09 17:50] LABS: FOLATE 7.8 ng/mL
--- NOTE | 2017-06-09 18:07 | PN ---
DATE: 06/08/2017 SUBJECTIVE: The patient is a 62-year-old male. The patient is seen and examined at the bedside on 06/08/2017. Cough is better. Shortness of breath is better. No headache. No dizziness. No fever. No chills. No nausea, vomiting, or diarrhea. No dyspnea. According to patient, appetite is not great. Feeling fatigue and tired. PHYSICAL EXAMINATION: VITAL SIGNS: Temperature 97.9, pulse 58, blood pressure 118/78, respiratory rate 20. HEENT: Head, normocephalic and atraumatic. Eyes: PERRLA. Extraocular muscles intact. Conjunctivae clear. Nose patent. Mucous membranes moist. NECK: Supple. No carotid bruits. No JVD or thyromegaly. CHEST: Bilaterally symmetrical. HEART: S1 and S2 positive. LUNGS: Clear to auscultation. ABDOMEN: Soft. Bowel sounds present. No organomegaly. EXTREMITIES: No edema. No cyanosis. NEUROLOGIC: The patient is awake, alert. Moving all four extremities. No focal deficit. MEDICATIONS: Ambien, aspirin, azithromycin, ceftriaxone, Celexa, Cepacol lozenges, Colace, heparin, Lopressor, Plavix, Robitussin, and tramadol. LABORATORY DATA: White blood cells 4.8, hemoglobin 13.7, hematocrit 39.7, platelets 216. Sodium 140, potassium 3.7, BUN 18, creatinine 1.2. AST 68. ASSESSMENT AND PLAN: Mr. Kristie Brar is a 62-year-old male with leukocytosis, improved; hyperchloremia; abnormal liver function test; proteinuria; hematuria; has history of human immunodeficiency virus positive; chronic obstructive pulmonary disease; hypertension; cerebrovascular accident with residual right-sided weakness, had pneumonia. Getting antibiotics as per ID. According to ID, patient has acquired immunodeficiency syndrome. ID, Dr. Holman, covering Dr. Jessy Lujan. Leukocytosis is better. Continue antibiotics. Repeat labs. DVT prophylaxis, GI prophylaxis. We will follow. Karen Hampton MD
--- NOTE | 2017-06-10 03:05 | PN ---
DATE: SUBJECTIVE: The patient is a 62-year-old male. The patient was seen and examined at the bedside, daughter was sitting at the bedside also, looking comfortable. Cough is better. Shortness of breath is better. Chest pain with coughing is better. No nausea, vomiting, or diarrhea. No hematuria or hematochezia. No swelling of the leg. No fever, no chills. No headache. PHYSICAL EXAMINATION: VITAL SIGNS: Temperature 97.9, pulse 58, respiratory rate 20, blood pressure 118/78, and pulse oximetry is 96. HEENT: Head: Normocephalic, atraumatic. Eyes: PERRLA. Extraocular muscles intact. Conjunctivae clear. Nose patent. Mucous membranes moist. NECK: Supple. No carotid bruit. No JVD or thyromegaly. CHEST: Bilaterally symmetrical. HEART: S1 and S2 positive. LUNGS: Clear to auscultation. ABDOMEN: Soft. Bowel sounds positive. No organomegaly. EXTREMITIES: No edema. No cyanosis. NEUROLOGIC: The patient is awake and alert. Moving all four extremities. No focal deficits. MEDICATIONS: Aspirin, Cepacol lozenges, Celexa, Plavix, Colace, Robitussin, heparin, ceftriaxone, azithromycin, metoprolol, raltegravir, tramadol, and zolpidem. LABORATORY DATA: Labs, white blood cell is 4.8, hemoglobin 13.7, hematocrit 39.7, and platelets 216. Sodium 140, potassium 3.7, BUN 18, creatinine 1.2, glucose 87. ASSESSMENT AND PLAN: Mr. Kristie Brar is a 62-year-old male, he has acquired immune deficiency syndrome, pneumonia, waiting for T-cell, Infectious Diseases added Bactrim, continue antibiotics as per Infectious Diseases, history of hyperchloremia, abnormal liver function test, proteinuria, hematuria, chronic obstructive pulmonary disease, hypertension, cerebrovascular accident, history of right-sided weakness. Getting antibiotics for pneumonia. Appreciated Dr. Holman's input. Discussion done with daughter. Gastrointestinal and deep venous thrombosis prophylaxis. Repeat labs. We will follow up. Kraen Hampton MD [facility] # [id number]
[2017-06-10] MEDS: guaiFENesin 100 mg/5 ml Syrup UD PO PRN ×3 (05:56→22:09)
[2017-06-10 06:22] LABS: HEMOGLOBIN 13.1 g/dL (12.0-18.0); MEAN CELL VOLUME 98.1 fL (80.0-94.0); MEAN CORPUSCULAR HEMOGLOBIN 32.9 pg (27.0-31.0); MEAN CORPUSCULAR HGB CONC 33.5 g/dL (33.0-37.0); MEAN PLATELET VOLUME 8.5 fL (7.2-11.7); RED CELL DISTRIBUTION WIDTH 13.5 % (11.5-14.5); WHITE BLOOD COUNT 5.3 K/uL (4.8-10.8)
[2017-06-10 06:35] LABS: BLOOD UREA NITROGEN 15 mg/dL (9-20); CALCIUM 8.3 mg/dl (8.6-10.4); GFR AFRICAN-AMERICAN > 60; GFR NON-AFRICAN AMERICAN > 60
[2017-06-10] MEDS: Abacavir/Lamivudine 600 mg-300 mg Tab PO SCH (10:41)
--- NOTE | 2017-06-10 12:02 | CP.PCM.PN ---
Subjective - Date & Time of Evaluation Date of Evaluation: 06/10/17 Time of Evaluation: 08:00 - Subjective Subjective: await T cells IV rx in progress Objective - Vital Signs/Intake and Output Vital Signs (last 24 hours): Temp Pulse Resp BP Pulse Ox 98.1 F 62 20 153/89 H 97 06/10/17 07:47 06/10/17 07:47 06/10/17 07:47 06/10/17 07:47 06/10/17 07:47 Intake and Output: 06/10/17 06/10/17 06:59 18:59 Intake Total 240 Balance 240 - Medications Medications: Current Medications Abacavir/Lamivudine (Epzicom) 1 tab PO DAILY [facility] Last Admin: 06/10/17 10:41 Dose: 1 tab Aspirin (Aspirin Chewable) 81 mg PO DAILY [facility] Last Admin: 06/10/17 10:17 Dose: 81 mg Benzocaine/Menthol (Cepacol Sore Throat) 1 emilee PO Q6H PRN PRN Reason: Sore Throat Last Admin: 06/07/17 13:46 Dose: 1 emilee Citalopram Hydrobromide (Celexa) 10 mg PO DAILY [facility] Last Admin: 06/10/17 10:41 Dose: 10 mg Clopidogrel Bisulfate (Plavix) 75 mg PO DAILY [facility] Last Admin: 06/10/17 10:16 Dose: 75 mg Docusate Sodium (Colace) 100 mg PO DAILY [facility] Last Admin: 06/10/17 10:17 Dose: Not Given Guaifenesin (Robitussin) 100 mg PO Q4H PRN PRN Reason: Cough Last Admin: 06/10/17 10:17 Dose: 100 mg Ceftriaxone Sodium 1 gm/ (Sodium Chloride) 100 mls @ 100 mls/hr IVPB Q12H [facility] Last Admin: 06/10/17 10:17 Dose: 100 mls/hr Azithromycin 500 mg/ Dextrose 250 mls @ 167 mls/hr IVPB Q24H [facility] Last Admin: 06/09/17 11:15 Dose: 167 mls/hr Metoprolol Tartrate (Lopressor) 25 mg PO Q12H [facility] Last Admin: 06/10/17 05:57 Dose: 25 mg Raltegravir (Isentress) 400 mg PO BID [facility] Last Admin: 06/10/17 10:41 Dose: 400 mg Tramadol HCl (Ultram) 50 mg PO TID PRN PRN Reason: Pain, severe (8-10) Zolpidem Tartrate (Ambien) 5 mg PO HS [facility] Last Admin: 06/09/17 21:25 Dose: 5 mg - Labs Labs: 06/10/17 06:06 06/10/17 06:06 PT 13.8 SECONDS (9.7-12.2) H 06/06/17 18:34 INR 1.2 06/06/17 18:34 APTT 28 SECONDS (21-34) 06/06/17 18:34 - Constitutional Appears: Non-toxic, Chronically Ill - Head Exam Head Exam: NORMOCEPHALIC - Eye Exam Eye Exam: PERRL Pupil Exam: NORMAL ACCOMODATION - ENT Exam ENT Exam: Mucous Membranes Dry - Neck Exam Neck Exam: absent: Lymphadenopathy - Respiratory Exam Respiratory Exam: Decreased Breath Sounds - Cardiovascular Exam Cardiovascular Exam: REGULAR RHYTHM - GI/Abdominal Exam GI & Abdominal Exam: Distended, Soft - Rectal Exam Rectal Exam: Deferred - Exam Exam: NORMAL INSPECTION Assessment and Plan (1) AIDS Status: Acute (2) Pneumonia Status: Acute
--- NOTE | 2017-06-11 02:27 | PN ---
DATE: SUBJECTIVE: The patient is seen and examined at the bedside, looking comfortable. No nausea, vomiting, or diarrhea. No hematuria or hematochezia. No swelling of the leg. No chest pain. No palpitation. No headache. No dizziness. No fever. No chills. Waiting for T-cells. ID is on the case. According to ID, continue IV antibiotics. PHYSICAL EXAMINATION: VITAL SIGNS: Temperature 98.1, pulse 62, respiratory rate 20, blood pressure 153/59, pulse oxymetry 97. HEENT: Head normocephalic and atraumatic. Eyes; PERRLA. Extraocular muscles intact. Conjunctivae clear. Nose is patent. Mucous membranes moist. NECK: Supple. No carotid bruits. No JVD or thyromegaly. CHEST: Bilaterally symmetrical. HEART: S1 and S2 positive. LUNGS: Clear to auscultation. ABDOMEN: Soft. Bowel sounds present. No organomegaly. EXTREMITIES: No edema. No cyanosis. NEUROLOGIC: The patient is awake and alert. Moving all four extremities. No focal deficits. MEDICATIONS: Aspirin, Cepacol, Celexa, Plavix, Colace, Robitussin, ceftriaxone, azithromycin, metoprolol, tramadol, zolpidem. LABORATORY DATA: White blood cells 5.3, hemoglobin 13.1, hematocrit 39.3, and platelets 247. Sodium 135, potassium 3.7, BUN 15, creatinine 1.1, glucose 87. ASSESSMENT AND PLAN: Mr. Kristie Brar is a 62-year-old male, has acquired immune deficiency syndrome, came with pneumonia, getting medications from Infectious Diseases, Dr. Holman. Actually, [facility] is [facility], does not want to go back, trying to get another place for him. Waiting for T-cells. He has hypercholesterolemia, abnormal liver function test, proteinuria; hematuria; chronic obstructive lung disease, cerebrovascular accident, history of right-sided weakness. Gastrointestinal and deep venous thrombosis prophylaxis. Repeat labs. Karen Hampton MD
[2017-06-11] MEDS: Abacavir/Lamivudine 600 mg-300 mg Tab PO SCH (10:44)
[2017-06-11 13:39] LABS: % CD4 (T HELPER CELL) 17 Percent (30-61); % CD8 (SUPPRESSOR T CELL) 46 Percent (12-42); ABSOLUTE CD4 CELLS 564 Cells/mcL (490-1740); ABSOLUTE CD8 CELLS 1495 Cells/mcL (180-1170); ABSOLUTE LYMPHOCYTES 3232 Cells/mcL (850-3900); HELPER/SUPPRESSOR RATIO 0.38 Ratio (0.86-5.00)
[2017-06-11] MEDS: guaiFENesin 100 mg/5 ml Syrup UD PO PRN (21:39)
--- NOTE | 2017-06-11 22:45 | PN ---
DATE: The patient is a 62-year-old male. SUBJECTIVE: The patient is seen and examined on the bedside, looking comfortable. No nausea, vomiting, diarrhea. No hematuria or hematochezia. No swelling of the leg. No chest pain. No palpitation. No headache. No dizziness. No fever. No chills. PHYSICAL EXAMINATION: VITAL SIGNS: Temperature 98.3, pulse 62, blood pressure 121/81, respiratory rate 20. HEENT: Head normocephalic, atraumatic. Eyes PERRLA. Extraocular muscles intact. Conjunctivae clear. Nose patent. NECK: Supple. No carotid bruit. No JVD or thyromegaly. CHEST: Bilaterally symmetrical. HEART: S1 and S2 positive. LUNGS: Clear to auscultation. ABDOMEN: Soft. Bowel sounds positive. No organomegaly. EXTREMITIES: No edema. No cyanosis. NEUROLOGICAL: The patient is awake and alert. Moving all 4 extremities. No focal deficits. LABORATORY DATA: White blood cells 5.3, hemoglobin 13.1, hematocrit 39.3, platelets 240. Sodium 135, potassium 3.7, BUN 15, creatinine 1.1, hemoglobin A1c is 5.8, calcium 8.3. MEDICATIONS: Ambien, aspirin, azithromycin, ceftriaxone, Celexa, Cepacol, Colace, Epzicom, Isentress, Lopressor, Plavix, Robitussin, tramadol. ASSESSMENT AND PLAN: A 62-year-old male, Mr. Brar, history of leukocytosis, improved; hyperchloremia; hypocalcemia; proteinuria; hematuria; human immunodeficiency virus positive. The patient has acquired immune deficiency syndrome. Came with pneumonia. Getting antibiotics as per Infectious Disease. Appreciated Dr. Oren Aguiar's input. Looking for placement. The patient do not want to go back to the same place. Gastrointestinal/deep venous thrombosis prophylaxis. Repeat labs. We will follow. Karen Hampton MD
[2017-06-12] MEDS: Abacavir/Lamivudine 600 mg-300 mg Tab PO SCH (11:00)
[2017-06-12] MEDS: guaiFENesin 100 mg/5 ml Syrup UD PO PRN (14:15)
[2017-06-12 14:32] VITALS: O2SAT 95
[2017-06-12 16:06] VITALS: BP 133/80; PULSE 55; TEMP 98
--- NOTE | 2017-06-12 17:11 | CP.PCM.PN ---
Subjective - Date & Time of Evaluation Date of Evaluation: 06/12/17 Time of Evaluation: 11:00 - Subjective Subjective: Patient is alert, awake, no sob or distress. Objective - Vital Signs/Intake and Output Vital Signs (last 24 hours): Temp Pulse Resp BP Pulse Ox 98.0 F 55 L 20 133/80 95 06/12/17 15:00 06/12/17 15:00 06/12/17 15:00 06/12/17 15:00 06/12/17 15:00 Intake and Output: 06/12/17 06/12/17 06:59 18:59 Intake Total 200 750 Balance 200 750 - Medications Medications: Current Medications Abacavir/Lamivudine (Epzicom) 1 tab PO DAILY [facility] Last Admin: 06/12/17 11:00 Dose: 1 tab Aspirin (Aspirin Chewable) 81 mg PO DAILY [facility] Last Admin: 06/12/17 11:00 Dose: 81 mg Benzocaine/Menthol (Cepacol Sore Throat) 1 emilee PO Q6H PRN PRN Reason: Sore Throat Last Admin: 06/07/17 13:46 Dose: 1 emilee Citalopram Hydrobromide (Celexa) 10 mg PO DAILY [facility] Last Admin: 06/12/17 11:00 Dose: 10 mg Clopidogrel Bisulfate (Plavix) 75 mg PO DAILY [facility] Last Admin: 06/12/17 11:00 Dose: 75 mg Docusate Sodium (Colace) 100 mg PO DAILY [facility] Last Admin: 06/12/17 11:00 Dose: Not Given Guaifenesin (Robitussin) 100 mg PO Q4H PRN PRN Reason: Cough Last Admin: 06/12/17 14:15 Dose: 100 mg Ceftriaxone Sodium 1 gm/ (Sodium Chloride) 100 mls @ 100 mls/hr IVPB Q12H [facility] Last Admin: 06/12/17 11:00 Dose: 100 mls/hr Azithromycin 500 mg/ Dextrose 250 mls @ 167 mls/hr IVPB Q24H [facility] Last Admin: 06/12/17 11:56 Dose: 167 mls/hr Metoprolol Tartrate (Lopressor) 25 mg PO Q12H [facility] Last Admin: 06/12/17 05:37 Dose: 25 mg Raltegravir (Isentress) 400 mg PO BID [facility] Last Admin: 06/12/17 11:00 Dose: 400 mg Tramadol HCl (Ultram) 50 mg PO TID PRN PRN Reason: Pain, severe (8-10) Last Admin: 06/10/17 23:43 Dose: 50 mg Zolpidem Tartrate (Ambien) 5 mg PO HS [facility] Last Admin: 06/11/17 21:39 Dose: 5 mg - Labs Labs: 06/10/17 06:06 06/10/17 06:06 PT 13.8 SECONDS (9.7-12.2) H 06/06/17 18:34 INR 1.2 06/06/17 18:34 APTT 28 SECONDS (21-34) 06/06/17 18:34 Assessment and Plan - Assessment and Plan (Free Text) Assessment: Patient is seen and examined. Awake, alert, denies or chest pains. D/W DR Hampton, patient will be discharged to [facility] today on po levaquin for 5 more days for pneumonia.
--- NOTE | 2017-06-12 19:03 | CP.PCM.PN ---
Subjective - Date & Time of Evaluation Date of Evaluation: 06/12/17 Time of Evaluation: 09:00 - Subjective Subjective: rx in proigress cultures noted Objective - Vital Signs/Intake and Output Vital Signs (last 24 hours): Temp Pulse Resp BP Pulse Ox 98.0 F 55 L 20 133/80 95 06/12/17 15:00 06/12/17 15:00 06/12/17 15:00 06/12/17 17:04 06/12/17 15:00 Intake and Output: 06/12/17 06/13/17 18:59 06:59 Intake Total 750 Balance 750 - Medications Medications: Current Medications Abacavir/Lamivudine (Epzicom) 1 tab PO DAILY [facility] Last Admin: 06/12/17 11:00 Dose: 1 tab Aspirin (Aspirin Chewable) 81 mg PO DAILY [facility] Last Admin: 06/12/17 11:00 Dose: 81 mg Benzocaine/Menthol (Cepacol Sore Throat) 1 emilee PO Q6H PRN PRN Reason: Sore Throat Last Admin: 06/07/17 13:46 Dose: 1 emilee Citalopram Hydrobromide (Celexa) 10 mg PO DAILY [facility] Last Admin: 06/12/17 11:00 Dose: 10 mg Clopidogrel Bisulfate (Plavix) 75 mg PO DAILY [facility] Last Admin: 06/12/17 11:00 Dose: 75 mg Docusate Sodium (Colace) 100 mg PO DAILY [facility] Last Admin: 06/12/17 11:00 Dose: Not Given Guaifenesin (Robitussin) 100 mg PO Q4H PRN PRN Reason: Cough Last Admin: 06/12/17 14:15 Dose: 100 mg Ceftriaxone Sodium 1 gm/ (Sodium Chloride) 100 mls @ 100 mls/hr IVPB Q12H [facility] Last Admin: 06/12/17 11:00 Dose: 100 mls/hr Azithromycin 500 mg/ Dextrose 250 mls @ 167 mls/hr IVPB Q24H [facility] Last Admin: 06/12/17 11:56 Dose: 167 mls/hr Metoprolol Tartrate (Lopressor) 25 mg PO Q12H [facility] Last Admin: 06/12/17 17:04 Dose: 25 mg Raltegravir (Isentress) 400 mg PO BID [facility] Last Admin: 06/12/17 17:24 Dose: 400 mg Tramadol HCl (Ultram) 50 mg PO TID PRN PRN Reason: Pain, severe (8-10) Last Admin: 06/10/17 23:43 Dose: 50 mg Zolpidem Tartrate (Ambien) 5 mg PO HS [facility] Last Admin: 06/11/17 21:39 Dose: 5 mg - Labs Labs: 06/10/17 06:06 06/10/17 06:06 PT 13.8 SECONDS (9.7-12.2) H 06/06/17 18:34 INR 1.2 06/06/17 18:34 APTT 28 SECONDS (21-34) 06/06/17 18:34 - Constitutional Appears: Non-toxic, Chronically Ill - Head Exam Head Exam: NORMOCEPHALIC - Eye Exam Eye Exam: Normal appearance - ENT Exam ENT Exam: Mucous Membranes Dry - Neck Exam Neck Exam: absent: Lymphadenopathy - Respiratory Exam Respiratory Exam: Decreased Breath Sounds - Cardiovascular Exam Cardiovascular Exam: REGULAR RHYTHM - GI/Abdominal Exam GI & Abdominal Exam: Distended, Soft Assessment and Plan (1) AIDS Status: Acute (2) Pneumonia Status: Acute
--- NOTE | 2017-06-13 22:51 | DS ---
CHIEF COMPLAINT: Cough, cold, congestion. HISTORY OF PRESENT ILLNESS: Mr. Kristie Brar is a 62-year-old male with history of hypertension, COPD, CVA with residual right-sided weakness, [facility] for the finding of pneumonia on chest x-ray. The patient has been having cough productive of sputum, subjective feelings of fever. Denies any nausea, vomiting or diarrhea. We admitted the patient in [facility]. Chest x-ray done, electrocardiogram done. Seen by Dr. Holman, Infectious Disease, got antibiotics, improved, cleared by Dr. Holman. The patient had pneumonia, treated by Dr. Ricks with antibiotics. The patient's daughter does not want him to go back to [facility], but they want him to take to [facility], so the patient discharged to [facility] for continuity of care with p.o. Levaquin more 5 days and for physical therapy. PAST MEDICAL HISTORY: History of HIV positive, COPD, hypertension, CVA with residual right-sided weakness. Resident of [facility]. ALLERGIES: THE PATIENT IS NOT ALLERGIC TO ANY MEDICATIONS. FAMILY HISTORY: Father and mother noncontributory. HABITS: No smoking, no drugs, no ethanol. REVIEW OF SYSTEMS: The patient is seen and examined at the bedside, sitting on the chair, feeling better, excited to go home. No fever, no chills. No nausea, vomiting or diarrhea. No hematuria or hematochezia, no swelling of leg, no chest pain, no palpitation, no headache, no dizziness. PHYSICAL EXAMINATION: VITAL SIGNS: Temperature 98.0, pulse 55, blood pressure 133/80, respiratory rate 20. HEENT: Head normocephalic, atraumatic. Eyes PERRLA. Extraocular muscles intact. Conjunctivae clear. Nose patent. Mucous membrane moist. NECK: Supple. No carotid bruit. No JVD or thyromegaly. CHEST: Bilaterally symmetrical. HEART: S1 and S2 positive. LUNGS: Clear to auscultation. ABDOMEN: Soft. Bowel sounds are present. No organomegaly. EXTREMITIES: No edema, no cyanosis. NEUROLOGICAL: The patient is awake, alert. Moving all 4 extremities. No focal deficits. LABORATORY DATA: White blood cells on admission was 11.9, today is 5.3; hemoglobin 13.1; hematocrit 39.3; platelets 240. Sodium 135, potassium 3.7, BUN 15, creatinine 1.1, calcium 8.3. ASSESSMENT AND PLAN: Mr. Kristie Brar is a 62-year-old male with leukocytosis, improved; hyperchloremia; hypocalcemia; proteinuria; hematuria; HIV RNA quantitative is 2.06, is high; history of human immunodeficiency virus positive; chronic obstructive pulmonary disease; hypertension; cerebrovascular accident with residual right-sided weakness; came with cough, cold and congestion and treatment of pneumonia, diagnosed with chest x-ray in the prison, got medication in the hospital, azithromycin, ceftriaxone. For insomnia, was getting Ambien, got aspirin, Celexa, Cepacol lozenges, Colace, HIV medications, Lopressor, Plavix, cough medications, and tramadol. Will complete treatment in [facility]. Prescription of the medications given by Lori Parikh, nurse practitioner. I do not go to [facility], but some other doctor will continue treatment there. Karen Hampton MD
== END 2017-06-12 20:13 | DRG 975 ==
LOC: C.ER 17:43 → C.9E 21:23 → C.3T 06-07 01:08
PROVIDERS: ADMIT Internal Medicine; ATTEND Internal Medicine
DX: B20 Human immunodeficiency virus [HIV] disease (principal); J18.9 Pneumonia, unspecified organism; J44.0 Chronic obstructive pulmonary disease with (acute) lower respiratory infection; E83.51 Hypocalcemia; I69.351 Hemiplegia and hemiparesis following cerebral infarction affecting right dominant side; F17.210 Nicotine dependence, cigarettes, uncomplicated; I12.9 Hypertensive chronic kidney disease with stage 1 through stage 4 chronic kidney disease, or unspecified chronic kidney disease; N18.9 Chronic kidney disease, unspecified; E86.0 Dehydration; R73.9 Hyperglycemia, unspecified; R31.9 Hematuria, unspecified; R80.9 Proteinuria, unspecified

== ENCOUNTER 2018-05-18 19:04 | Inpatient (IN) | payer MEDICARE, OTHER ==
[2018-05-18] MEDS ORDERED: Albuterol-Ipratrop 3 mg / 0.5 (3 ml) UD INH STA (19:50)
[2018-05-18] MEDS ORDERED: Albuterol-Ipratrop 3 mg / 0.5 (3 ml) UD ONE (19:54)
[2018-05-18 20:05] LABS: BASO # 0.1 K/uL (0.0-0.2); BASO % 0.6 % (0.0-2.0); HEMOGLOBIN 14.4 g/dL (12.0-18.0); LYMPH # 1.7 K/uL (1.0-4.3); LYMPH % 10.3 % (20.0-40.0); MEAN CORPUSCULAR HEMOGLOBIN 32.5 pg (27.0-31.0); MEAN CORPUSCULAR HGB CONC 33.2 g/dL (33.0-37.0); MEAN PLATELET VOLUME 8.5 fL (7.2-11.7); MONO % 6.1 % (0.0-10.0); NEUT # 13.5 K/uL (1.8-7.0); NRBC % 0.2 % (0.0-2.0); RBC 4.43 Mil/uL (4.40-5.90); RED CELL DISTRIBUTION WIDTH 14.5 % (11.5-14.5); WHITE BLOOD COUNT 16.3 K/uL (4.8-10.8)
--- NOTE | 2018-05-18 20:35 | C.PDOC ---
History Of Present Illness Patient is a 63 year old male with a PMHx of HIV, CVA with right sided deficit, COPD, HTN, is sent to the ED from his [facility] for evaluation of SOB and palpitations that have been present for the past 4 days. Patient also mentions that he has been coughing, sneezing. Patient also c/o abdominal pain and no bowel movements for the past 4 days. He thinks he may have pneumonia since he has had it in the past. Patient denies fever, vomiting, diarrhea, or chest pain. PMD : Dr. Donnell Sandra Time Seen by Provider: 05/18/18 19:17 Chief Complaint (Nursing): Abdominal Pain History Per: Patient, Other ([facility]) History/Exam Limitations: no limitations Onset/Duration Of Symptoms: Days (4) Current Symptoms Are (Timing): Still Present Associated Symptoms: Constipation (4 days). denies: Fever, Vomiting, Diarrhea, Chest Pain Last Bowel Movement: Days Ago (4 days) Additional History Per: Patient, [facility] Past Medical History Reviewed: Historical Data, Nursing Documentation, Vital Signs Vital Signs: Last Vital Signs Temp 98.2 F 05/18/18 19:09 Pulse 90 05/18/18 19:09 Resp 20 05/18/18 19:09 BP 170/76 H 05/18/18 19:09 Pulse Ox 94 L 05/18/18 19:09 - Medical History PMH: COPD, CVA, Depression, HIV, HTN, Pneumonia, Chronic Kidney Disease Surgical History: No Surg Hx Family History: States: Unknown Family Hx - Social History Hx Alcohol Use: Yes Hx Substance Use: Yes - Immunization History Hx Influenza Vaccination: Yes Hx Pneumococcal Vaccination: No Review Of Systems Except As Marked, All Systems Reviewed And Found Negative. Cardiovascular: Positive for: Palpitations Respiratory: Positive for: Shortness of Breath Gastrointestinal: Positive for: Constipation (4 days) Physical Exam - Physical Exam Additional Physical Exam Comments: Constitutional: No acute distress. Head: Normocephalic. Atraumatic. Eyes: PERRL. ENT: Dry mucous membranes. Neck: Supple. Cardiovascular: Regular rate. Radial pulses 2+ bilaterally. Chest: No tenderness. Respiratory: Clear to auscultation bilaterally. GI: Soft. Nontender. Nondistended. Back: No CVA tenderness. Musculoskeletal: No tenderness or swelling of extremities. Skin: No rash. Neurologic: Alert, Right motor weakness. ED Course And Treatment - Laboratory Results Result Diagrams: 05/18/18 19:54 05/18/18 21:52 O2 Sat by Pulse Oximetry: 94 Medical Decision Making Medical Decision Making: Plan: * CT abd/pelvis * Labs * CXR * Duoneb 3 ml INH EKG Sinus Rhythm 90 BPM, No ST/T wave changes CT A/P: CLINICAL HISTORY: Cough, Dyspnea, COPD. Abdominal pain. TECHNIQUE: Multiple axial, coronal, sagittal CT images were obtained through the chest, abdomen and pelvis without IV contrast material. DLP 220.97. COMMENTS: There is no evidence of pleural or parenchymal mass. There are no pleural effusions. There is no evidence of hilar or mediastinal lymphadenopathy. Specifically, there is no evidence for paratracheal and supraclavicular adenopathy. There is no evidence for a chest or abdominal wall nodule or mass. The heart and great vessels are within normal limits. Severe upper lobes predominant centrilobular and paraseptal bullous emphysema is seen. Severe biapical fibronodular scarring is noted. There is diffuse bronchiectasis and bronchial wall thickening especially at left upper lobe. There is consolidation noted in the left upper lobe which may represent chronic pneumonitis. Within the consolidation there are individual irregular nodular foci present which could be due to infectious process. Nevertheless underlying malignancy is not completely excluded. Consider additional evaluation with contrast enhanced CT or short term follow-up. The liver is of uniform attenuation without mass or defect. The gallbladder is distended consistetn with gallbladder hydrops. IVC filter is in place. There is a peripherally calcified material noted within the IVC filter which may represent partially calcified chronic clots. Contrast enhanced CT is recommended for better evaluation. There is no intrahepatic or extrahepatic biliary ductal dilatation. The spleen is normal. The pancreas is of normal contour and attenuation characteristics. There is no evidence of adrenal mass. Both kidneys demonstrate prompt and equal nephrograms. The kidneys are normal in size, shape and configuration. There is no evidence of renal mass. There is no hydroureter or hydronephrosis. There is no bowel wall thickening. No evidence for small or large bowel obstruction. There is no evidence of abdominal ascites or lymphadenopathy. The prostate gland is mildly enlarged. There is no evidence of intrinsic or extrinsic bladder mass. There is no pelvic ascites or lymphadenopathy. The bony structures are free of lytic or blastic lesions. There is grade-1 retrolisthesis of L5 over S1. There is multilevel spondylosis present most severe at L5-S1. At this level there is severe bilateral foraminal stenosis present. IMPRESSION: 1. Severe upper lobes predominant centrilobular and paraseptal bullous emphysema. 2. Severe biapical fibronodular scarring. 3. Diffuse bronchiectasis and bronchial wall thickening especially involving left upper lobe. 4. Consolidation in the left upper lobe which may represent chronic pneumonitis. Within the consolidation there are individual irregular nodular foci present which could be due to infectious process. Nevertheless underlying malignancy is not completely excluded. Consider additional evaluation with contrast enhanced CT or short term follow-up. 5. The gallbladder is distended consistent with gallbladder hydrops. 6. IVC filter is in place. Peripherally calcified material noted within the IVC filter which may represent partially calcified chronic clots. Contrast enhanced CT is recommended for better evaluation. Electronically signed on May 18, 2018 10:02:49 PM EST by: Sohail Truong M.D., ISAC Certified By ABR & CBC[employer] Fellowship Trained MRI and CT Specialist CT Chest: CLINICAL HISTORY: Cough, Dyspnea, COPD. Abdominal pain. TECHNIQUE: Multiple axial, coronal, sagittal CT images were obtained through the chest, abdomen and pelvis without IV contrast material. DLP 220.97. COMMENTS: There is no evidence of pleural or parenchymal mass. There are no pleural effusions. There is no evidence of hilar or mediastinal lymphadenopathy. Specifically, there is no evidence for paratracheal and supraclavicular adenopathy. There is no evidence for a chest or abdominal wall nodule or mass. The heart and great vessels are within normal limits. Severe upper lobes predominant centrilobular and paraseptal bullous emphysema is seen. Severe biapical fibronodular scarring is noted. There is diffuse bronchiectasis and bronchial wall thickening especially at left upper lobe. There is consolidation noted in the left upper lobe which may represent chronic pneumonitis. Within the consolidation there are individual irregular nodular foci present which could be due to infectious process. Nevertheless underlying malignancy is not completely excluded. Consider additional evaluation with contrast enhanced CT or short term follow-up. The liver is of uniform attenuation without mass or defect. The gallbladder is distended consistetn with gallbladder hydrops. IVC filter is in place. There is a peripherally calcified material noted within the IVC filter which may represent partially calcified chronic clots. Contrast enhanced CT is recommended for better evaluation. There is no intrahepatic or extrahepatic biliary ductal dilatation. The spleen is normal. The pancreas is of normal contour and attenuation characteristics. There is no evidence of adrenal mass. Both kidneys demonstrate prompt and equal nephrograms. The kidneys are normal in size, shape and configuration. There is no evidence of renal mass. There is no hydroureter or hydronephrosis. There is no bowel wall thickening. No evidence for small or large bowel obstruction. There is no evidence of abdominal ascites or lymphadenopathy. The prostate gland is mildly enlarged. There is no evidence of intrinsic or extrinsic bladder mass. There is no pelvic ascites or lymphadenopathy. The bony structures are free of lytic or blastic lesions. There is grade-1 retrolisthesis of L5 over S1. There is multilevel spondylosis present most severe at L5-S1. At this level there is severe bilateral foraminal stenosis present. IMPRESSION: 1. Severe upper lobes predominant centrilobular and paraseptal bullous emphysema. 2. Severe biapical fibronodular scarring. 3. Diffuse bronchiectasis and bronchial wall thickening especially involving left upper lobe. 4. Consolidation in the left upper lobe which may represent chronic pneumonitis. Within the consolidation there are individual irregular nodular foci present which could be due to infectious process. Nevertheless underlying malignancy is not completely excluded. Consider additional evaluation with contrast enhanced CT or short term follow-up. 5. The gallbladder is distended consistent with gallbladder hydrops. 6. IVC filter is in place. Peripherally calcified material noted within the IVC filter which may represent partially calcified chronic clots. Contrast enhanced CT is recommended for better evaluation. Electronically signed on May 18, 2018 10:02:40 PM EST by: Sohail Truong M.D., ISAC Certified By ABR & CBC[employer] Fellowship Trained MRI and CT Specialist Dr. Sandra accepts patient for admission. Disposition - Disposition Disposition: HOSPITALIZED Disposition Time: 22:30 Condition: GUARDED - Clinical Impression Clinical Impression: Pneumonia - Scribe Statement The provider has reviewed the documentation as recorded by the Candido Jacinto All medical record entries made by the Candido were at my direction and personally dictated by me. I have reviewed the chart and agree that the record accurately reflects my personal performance of the history, physical exam, medical decision making, and the department course for this patient. I have also personally directed, reviewed, and agree with the discharge instructions and disposition.
[2018-05-18] MEDS ORDERED: Sodium Chloride 0.9% 1,000 ML IV ONE (21:00)
[2018-05-18] MEDS ORDERED: Piperacill/Tazo 4.5gm in Dex 4.5 GM/100 ML BAG IV STA (21:00)
[2018-05-18] MEDS ORDERED: Vancomycin 1 gm/NS 200 ml 1 GM/200 ML BAG IVPB STA (21:00)
[2018-05-18] MEDS ORDERED: Vancomycin 1 GM 0 GM/0 ML BAG IVPB ONE (21:30)
[2018-05-18] MEDS ORDERED: Vancomycin 1 GM 1 GM/250 ML BAG IVPB ONE (21:36)
[2018-05-18 22:20] LABS: ALB/GLOB RATIO 0.9 (1.0-2.1); CALCIUM 9.4 mg/dl (8.6-10.4)
[2018-05-18 22:30] LABS: TROPONIN I 0.03 ng/mL (0.00-0.120)
--- NOTE | 2018-05-19 09:05 | CT ---
Date of service: 05/18/2018 PROCEDURE: CT Abdomen and Pelvis without intravenous contrast HISTORY: abd pain COMPARISON: None. TECHNIQUE: Without contrast.. Contrast dose: 0 Radiation dose: Total exam DLP = 252.02 mGy-cm. This CT exam was performed using one or more of the following dose reduction techniques: Automated exposure control, adjustment of the mA and/or kV according to patient size, and/or use of iterative reconstruction technique. FINDINGS: LOWER THORAX: Extensive centrilobular pulmonary emphysema. Lingular infiltrate. Possible pneumonia.. LIVER: Unremarkable. No gross lesion or ductal dilatation. GALLBLADDER AND BILE DUCTS: Unremarkable. PANCREAS: Unremarkable. No gross lesion or ductal dilatation. SPLEEN: Unremarkable. ADRENALS: Unremarkable. No mass. KIDNEYS AND URETERS: Absent right kidney. Presumed prior nephrectomy. Left kidney significant for 2.3 cm lower pole rounded low-density mass and 2nd 1.2 cm rounded low-density mass in lower pole, likely cortical cysts. Consider correlation with ultrasound. No calculus or hydronephrosis. VASCULATURE: Vena caval filter. No evidence of abdominal aortic aneurysm. There is atherosclerotic calcification of the abdominal aorta. BOWEL: There is mild mural thickening of the ascending and transverse colon consistent with nonspecific colitis. Please correlate clinically. There is no bowel obstruction. APPENDIX: The appendix is distended up to approximately 8 mm diameter. There is no stranding of the periappendiceal fat. There is mild thickening of the adjacent lateroconal fascia. Nevertheless, the findings are concerning for acute appendicitis. No periappendiceal abscess. No free intraperitoneal air. Careful followup advised. PERITONEUM: Unremarkable. No free fluid. No free air. LYMPH NODES: Unremarkable. No enlarged lymph nodes. BLADDER: Poorly distended. No gross abnormality. REPRODUCTIVE: Normal prostate BONES: No acute fracture. OTHER FINDINGS: None. IMPRESSION: Distended appendix up to approximately 8 mm. Concerning for acute appendicitis. Mild mural thickening of the ascending and transverse colon concerning for nonspecific colitis. Please correlate clinically. Absent right kidney. The preliminary findings for this examination were reported by [facility] at 10:02 p.m. on 05/18/2018. There is discordance of this report with the preliminary findings. Abnormal appendix not described in the preliminary report. Abnormal: Not described in the preliminary report. Absence of right kidney not noted in preliminary report. These discrepancies were discussed by telephone with the patient's nurse, Melinda, at 9 a.m. on 05/19/2018
[2018-05-19] MEDS: cefTRIAXone IV 1 gm in Dextros 1 GM in Dextrose 5% In Water 50 ML IVPB SCH ×2 (09:38→21:51)
--- NOTE | 2018-05-19 09:41 | CT ---
Date of service: 05/18/2018 PROCEDURE: CT Chest without contrast HISTORY: cough, dyspnea, abd pain COMPARISON: None available. TECHNIQUE: Contiguous axial images were obtained through the chest without intravenous contrast enhancement. Sagittal and coronal reconstructions were performed. Radiation dose: Total exam DLP = 220.97 mGy-cm. This CT exam was performed using one or more of the following dose reduction techniques: Automated exposure control, adjustment of the mA and/or kV according to patient size, and/or use of iterative reconstruction technique. FINDINGS: LUNGS: Severe bullous emphysema with biapical pleural-parenchymal fibronodular scar formation with extensive bronchiectasis particular involving the left upper lobe. Extensive areas of honeycombing throughout the left upper lobe, anterior segment. No definite consolidation or discrete mass. MEDIASTINUM: Unremarkable thoracic aorta. No aneurysm. Normal sized heart. Main pulmonary artery unremarkable. No vascular congestion. No lymphadenopathy. No aortic atherosclerotic calcification. PLEURA: No pleural fluid. No pneumothorax. BONES: No fracture. No destructive lesion. UPPER ABDOMEN: Gallbladder distension. OTHER FINDINGS: None. IMPRESSION: Severe bullous emphysema with biapical pleural-parenchymal fibronodular scar formation with extensive bronchiectasis particular involving the left upper lobe. Extensive areas of honeycombing throughout the left upper lobe, anterior segment. No definite consolidation or discrete mass.
[2018-05-19] MEDS: Pantoprazole 40 mg EC Tab PO SCH (09:44)
[2018-05-19] MEDS: Enoxaparin 40 mg Syringe SC SCH (09:44)
--- NOTE | 2018-05-19 10:28 | RAD ---
HISTORY: cough COMPARISON: Chest x-ray performed 06/06/17 TECHNIQUE: Chest, one view. FINDINGS: LUNGS: Hyperinflation may be seen in the setting of COPD. Emphysematous changes. Large bulla noted within the right upper and left hilar regions. Patchy infiltrate or fibrosis in the left hilar/infrahilar region as well as medial left upper lobe. Bilateral apical pleural parenchymal scarring. No definite pneumothorax. Blunting of the hemidiaphragm may represent small pleural effusions. This Please note that chest x-ray has limited sensitivity for the detection of pulmonary masses. CARDIOVASCULAR: Heart size appears top normal. Ectatic aorta. Atherosclerotic calcifications of the aortic knob. OSSEOUS STRUCTURES: No acute osseous abnormality identified. VISUALIZED UPPER ABDOMEN: Unremarkable. OTHER FINDINGS: None. IMPRESSION: Biapical pleural parenchymal scarring and fibrosis. Severe bullous formation. Blunting of the hemidiaphragm may reflect tiny effusions. Hyperinflation/COPD. Please refer to report from CT chest without contrast which followed for more detailed discussion.
--- NOTE | 2018-05-19 10:53 | CP.PCM.CON ---
<Deon Hoang - Last Filed: 05/19/18 10:49> History of Present Illness - History of Present Illness History of Present Illness: General Surgery - Dr Johnson 63M w/ hx of HIV, COPD, HTN, CVA w/ right sided weakness, Right Nephrectomy, brought in from group home for Sob and palpitations for 4 days. Pt also was complaining of abdominal pain at the time and CT abdomen was done which showed a dilated appendix to 9mm. Pt currently states that he is here with Pneumonia. He complains of periumbilical abdominal pain that he feels may be d/t coughing. He denies any nausea/vomiting/fevers/chills/SOB/chest pain/Dysuria/Hematuria/Diarrhea. Pt does state that he was constipated prior to arrival and this morning had a very dark BM. Pt states that he is hungry and would like to try eating. He denies any cough or sputum. PMH/PSH see above Review of Systems - Review of Systems All systems: reviewed and no additional remarkable complaints except (as per HPI) Past Patient History - Past Medical History & Family History Past Medical History?: Yes - Past Social History Smoking Status: Light Smoker < 10 Cigarettes Daily - CARDIAC Hx Hypertension: Yes - PULMONARY Hx Chronic Obstructive Pulmonary Disease (COPD): Yes Hx Pneumonia: Yes - NEUROLOGICAL HX Cerebrovascular Accident: Yes (right side weakness) - HEENT Hx HEENT Problems: No - RENAL Hx Chronic Kidney Disease: Yes Hx Renal (Kidney) Cancer: Yes - ENDOCRINE/METABOLIC Hx Endocrine Disorders: No - HEMATOLOGICAL/ONCOLOGICAL Hx Human Immunodeficiency Virus (HIV): Yes - INTEGUMENTARY Hx Dermatological Problems: No - MUSCULOSKELETAL/RHEUMATOLOGICAL Hx Falls: No - GASTROINTESTINAL Hx Gastrointestinal Disorders: No - GENITOURINARY/GYNECOLOGICAL Hx Genitourinary Disorders: No - PSYCHIATRIC Hx Depression: Yes Hx Substance Use: Yes - SURGICAL HISTORY Hx Surgeries: Yes Other/Comment: right kidney removal - ANESTHESIA Hx Anesthesia: Yes Hx Anesthesia Reactions: No Meds Allergies/Adverse Reactions: Allergies Allergy/AdvReac Type Severity Reaction Status Date / Time No Known Allergies Allergy Verified 06/06/17 18:13 - Medications Medications: Current Medications Enoxaparin Sodium (Lovenox) 40 mg SC DAILY [facility] Last Admin: 05/19/18 09:44 Dose: 40 mg Ceftriaxone Sodium 1 gm/ (Dextrose) 100 mls @ 50 mls/30 min IVPB Q12H [facility]; Protocol Last Admin: 05/19/18 09:38 Dose: 50 mls/30 min Azithromycin (Zithromax 500mg In Ns Addvantage) 500 mg in 250 mls @ 167 mls/hr IVPB Q24H [facility]; Protocol Pantoprazole Sodium (Protonix Ec Tab) 40 mg PO DAILY [facility] Last Admin: 05/19/18 09:44 Dose: 40 mg Pneumococcal Polyvalent Vaccine (Pneumovax 23 Vaccine) 0.5 ml IM .ONCE ONE Stop: 05/21/18 10:01 Physical Exam - Constitutional Appears: No Acute Distress - Head Exam Head Exam: ATRAUMATIC, NORMAL INSPECTION, NORMOCEPHALIC - Eye Exam Eye Exam: Normal appearance - Respiratory Exam Respiratory Exam: NORMAL BREATHING PATTERN. absent: Respiratory Distress - Cardiovascular Exam Cardiovascular Exam: REGULAR RHYTHM - GI/Abdominal Exam GI & Abdominal Exam: Hernia (umbilical), Soft, Tenderness (mild ttp periumbilically). absent: Distended, Firm, Guarding, Rebound, Rigid - Neurological Exam Neurological exam: Alert, Oriented x3 - Psychiatric Exam Psychiatric exam: Normal Affect, Normal Mood - Skin Skin Exam: Dry, Intact Results - Vital Signs Recent Vital Signs: Last Vital Signs Temp 99.2 F 05/19/18 07:25 Pulse 87 05/19/18 07:29 Resp 18 05/19/18 07:25 BP 134/86 05/19/18 07:25 Pulse Ox 97 05/19/18 07:25 - Labs Result Diagrams: 05/18/18 19:54 05/18/18 21:52 Labs: Laboratory Results - last 24 hr 05/18/18 05/18/18 05/18/18 19:54 21:52 21:52 WBC 16.3 H D RBC 4.43 Hgb 14.4 Hct 43.4 MCV 98.0 H MCH 32.5 H MCHC 33.2 RDW 14.5 Plt Count 246 MPV 8.5 Neut % (Auto) 83.0 H Lymph % (Auto) 10.3 L Mcduffie % (Auto) 6.1 Eos % (Auto) 0.0 Baso % (Auto) 0.6 Neut # (Auto) 13.5 H Lymph # (Auto) 1.7 Mcduffie # (Auto) 1.0 H Eos # (Auto) 0.0 Baso # (Auto) 0.1 Sodium 141 Potassium 3.7 Chloride 112 H Carbon Dioxide 16 L Anion Gap 17 BUN 50 H Creatinine 3.8 H Est GFR ( Amer) 20 Est GFR (Non-Af Amer) 16 Random Glucose 91 Calcium 9.4 Phosphorus 2.9 Magnesium 2.0 Total Bilirubin 1.2 AST 64 H ALT 26 Alkaline Phosphatase 81 Troponin I 0.0300 Total Protein 8.4 H Albumin 4.0 Globulin 4.4 H Albumin/Globulin Ratio 0.9 L Lipase 107 - Imaging and Cardiology CT scan - abdomen Status: Image reviewed by me, Report reviewed by me Assessment & Plan - Assessment and Plan (Free Text) Assessment: 63 yo M w/ HIV, COPD, HTN, R nephrectomy, admitted with Pneumonia and CT findings of dilated appendix -History and Physical seem less likely to be acute appendicitis -Start Regular diet -Monitor for Nausea/Vomiting or worsening of pain -Continue IV Abx -No surgical intervention planned at this time DW Dr Alex Carter PGY4 <Harley Johnson Jr. - Last Filed: 05/19/18 12:27> History of Present Illness - History of Present Illness History of Present Illness: seen, examined. No plan for any surgery Meds - Medications Medications: Current Medications Enoxaparin Sodium (Lovenox) 40 mg SC DAILY [facility] Last Admin: 05/19/18 09:44 Dose: 40 mg Ceftriaxone Sodium 1 gm/ (Dextrose) 100 mls @ 50 mls/30 min IVPB Q12H [facility]; Protocol Last Admin: 05/19/18 09:38 Dose: 50 mls/30 min Azithromycin (Zithromax 500mg In Ns Addvantage) 500 mg in 250 mls @ 167 mls/hr IVPB Q24H [facility]; Protocol Pantoprazole Sodium (Protonix Ec Tab) 40 mg PO DAILY [facility] Last Admin: 05/19/18 09:44 Dose: 40 mg Pneumococcal Polyvalent Vaccine (Pneumovax 23 Vaccine) 0.5 ml IM .ONCE ONE Stop: 05/21/18 10:01 Results - Vital Signs Recent Vital Signs: Last Vital Signs Temp 99.2 F 05/19/18 07:25 Pulse 87 05/19/18 07:29 Resp 18 05/19/18 07:25 BP 134/86 05/19/18 07:25 Pulse Ox 97 05/19/18 07:25 - Labs Result Diagrams: 05/19/18 10:51 05/19/18 10:51 Labs: Laboratory Results - last 24 hr 05/18/18 05/18/18 05/18/18 19:54 21:52 21:52 WBC 16.3 H D RBC 4.43 Hgb 14.4 Hct 43.4 MCV 98.0 H MCH 32.5 H MCHC 33.2 RDW 14.5 Plt Count 246 MPV 8.5 Neut % (Auto) 83.0 H Lymph % (Auto) 10.3 L Mcduffie % (Auto) 6.1 Eos % (Auto) 0.0 Baso % (Auto) 0.6 Neut # (Auto) 13.5 H Lymph # (Auto) 1.7 Mcduffie # (Auto) 1.0 H Eos # (Auto) 0.0 Baso # (Auto) 0.1 Sodium 141 Potassium 3.7 Chloride 112 H Carbon Dioxide 16 L Anion Gap 17 BUN 50 H Creatinine 3.8 H Est GFR ( Amer) 20 Est GFR (Non-Af Amer) 16 Random Glucose 91 Calcium 9.4 Phosphorus 2.9 Magnesium 2.0 Total Bilirubin 1.2 AST 64 H ALT 26 Alkaline Phosphatase 81 Troponin I 0.0300 Total Protein 8.4 H Albumin 4.0 Globulin 4.4 H Albumin/Globulin Ratio 0.9 L Lipase 107 05/19/18 05/19/18 10:51 10:51 WBC 10.1 RBC 3.84 L Hgb 13.0 Hct 37.8 MCV 98.6 H MCH 33.9 H MCHC 34.4 RDW 14.5 Plt Count 210 MPV 8.4 Neut % (Auto) 82.4 H Lymph % (Auto) 10.4 L Mcduffie % (Auto) 6.7 Eos % (Auto) 0.1 Baso % (Auto) 0.4 Neut # (Auto) 8.3 H Lymph # (Auto) 1.1 Mcduffie # (Auto) 0.7 Eos # (Auto) 0.0 Baso # (Auto) 0.0 Sodium 139 Potassium 3.6 Chloride 112 H Carbon Dioxide 16 L Anion Gap 15 BUN 45 H Creatinine 2.7 H Est GFR ( Amer) 29 Est GFR (Non-Af Amer) 24 Random Glucose 102 Calcium 8.6 Phosphorus Magnesium Total Bilirubin 1.1 AST 72 H ALT 24 Alkaline Phosphatase 76 Troponin I Total Protein 7.4 Albumin 3.5 Globulin 3.9 Albumin/Globulin Ratio 0.9 L Lipase
[2018-05-19 11:01] LABS: BASO % 0.4 % (0.0-2.0); EOS % 0.1 % (0.0-4.0); LYMPH # 1.1 K/uL (1.0-4.3); LYMPH % 10.4 % (20.0-40.0); MEAN CELL VOLUME 98.6 fL (80.0-94.0); MEAN CORPUSCULAR HEMOGLOBIN 33.9 pg (27.0-31.0); MEAN CORPUSCULAR HGB CONC 34.4 g/dL (33.0-37.0); MEAN PLATELET VOLUME 8.4 fL (7.2-11.7); MONO # 0.7 K/uL (0.0-0.8); MONO % 6.7 % (0.0-10.0); NEUT # 8.3 K/uL (1.8-7.0); NEUT % 82.4 % (50.0-75.0); RBC 3.84 Mil/uL (4.40-5.90); RED CELL DISTRIBUTION WIDTH 14.5 % (11.5-14.5); WHITE BLOOD COUNT 10.1 K/uL (4.8-10.8)
[2018-05-19 11:12] LABS: ALB/GLOB RATIO 0.9 (1.0-2.1); ALBUMIN 3.5 g/dL (3.5-5.0); CALCIUM 8.6 mg/dl (8.6-10.4)
--- NOTE | 2018-05-19 11:53 | CARD ---
APPROVED REPORT Date of service: 05/18/2018 EKG Measurement Heart [id number] <Conclusion> Normal sinus rhythm Normal ECG
--- NOTE | 2018-05-19 12:34 | CP.PCM.HP ---
Past Patient History - Past Medical History & Family History Past Medical History?: Yes - Past Social History Smoking Status: Light Smoker < 10 Cigarettes Daily - CARDIAC Hx Hypertension: Yes - PULMONARY Hx Chronic Obstructive Pulmonary Disease (COPD): Yes Hx Pneumonia: Yes - NEUROLOGICAL HX Cerebrovascular Accident: Yes (right side weakness) - HEENT Hx HEENT Problems: No - RENAL Hx Chronic Kidney Disease: Yes Hx Renal (Kidney) Cancer: Yes - ENDOCRINE/METABOLIC Hx Endocrine Disorders: No - HEMATOLOGICAL/ONCOLOGICAL Hx Human Immunodeficiency Virus (HIV): Yes - INTEGUMENTARY Hx Dermatological Problems: No - MUSCULOSKELETAL/RHEUMATOLOGICAL Hx Falls: No - GASTROINTESTINAL Hx Gastrointestinal Disorders: No - GENITOURINARY/GYNECOLOGICAL Hx Genitourinary Disorders: No - PSYCHIATRIC Hx Depression: Yes Hx Substance Use: Yes - SURGICAL HISTORY Hx Surgeries: Yes Other/Comment: right kidney removal - ANESTHESIA Hx Anesthesia: Yes Hx Anesthesia Reactions: No Meds Allergies/Adverse Reactions: Allergies Allergy/AdvReac Type Severity Reaction Status Date / Time No Known Allergies Allergy Verified 06/06/17 18:13 Physical Exam - Constitutional Appears: Well - Head Exam Head Exam: ATRAUMATIC, NORMAL INSPECTION, NORMOCEPHALIC - Eye Exam Eye Exam: EOMI, Normal appearance, PERRL Pupil Exam: NORMAL ACCOMODATION, PERRL - Neck Exam Neck exam: Positive for: Normal Inspection - Respiratory Exam Respiratory Exam: Decreased Breath Sounds - Cardiovascular Exam Cardiovascular Exam: REGULAR RHYTHM, +S1, +S2 - GI/Abdominal Exam GI & Abdominal Exam: Diminished Bowel Sounds, Soft - Rectal Exam Rectal Exam: Deferred Results - Vital Signs Recent Vital Signs: Last Vital Signs Temp 99.2 F 05/19/18 07:25 Pulse 87 05/19/18 07:29 Resp 18 05/19/18 07:25 BP 134/86 05/19/18 07:25 Pulse Ox 97 05/19/18 07:25 - Labs Result Diagrams: 05/19/18 10:51 05/19/18 10:51 Labs: Laboratory Results - last 24 hr 05/18/18 05/18/18 05/18/18 19:54 21:52 21:52 WBC 16.3 H D RBC 4.43 Hgb 14.4 Hct 43.4 MCV 98.0 H MCH 32.5 H MCHC 33.2 RDW 14.5 Plt Count 246 MPV 8.5 Neut % (Auto) 83.0 H Lymph % (Auto) 10.3 L [place] % (Auto) 6.1 Eos % (Auto) 0.0 Baso % (Auto) 0.6 Neut # (Auto) 13.5 H Lymph # (Auto) 1.7 [place] # (Auto) 1.0 H Eos # (Auto) 0.0 Baso # (Auto) 0.1 Sodium 141 Potassium 3.7 Chloride 112 H Carbon Dioxide 16 L Anion Gap 17 BUN 50 H Creatinine 3.8 H Est GFR ( Amer) 20 Est GFR (Non-Af Amer) 16 Random Glucose 91 Calcium 9.4 Phosphorus 2.9 Magnesium 2.0 Total Bilirubin 1.2 AST 64 H ALT 26 Alkaline Phosphatase 81 Troponin I 0.0300 Total Protein 8.4 H Albumin 4.0 Globulin 4.4 H Albumin/Globulin Ratio 0.9 L Lipase 107 05/19/18 05/19/18 10:51 10:51 WBC 10.1 RBC 3.84 L Hgb 13.0 Hct 37.8 MCV 98.6 H MCH 33.9 H MCHC 34.4 RDW 14.5 Plt Count 210 MPV 8.4 Neut % (Auto) 82.4 H Lymph % (Auto) 10.4 L [place] % (Auto) 6.7 Eos % (Auto) 0.1 Baso % (Auto) 0.4 Neut # (Auto) 8.3 H Lymph # (Auto) 1.1 [place] # (Auto) 0.7 Eos # (Auto) 0.0 Baso # (Auto) 0.0 Sodium 139 Potassium 3.6 Chloride 112 H Carbon Dioxide 16 L Anion Gap 15 BUN 45 H Creatinine 2.7 H Est GFR ( Amer) 29 Est GFR (Non-Af Amer) 24 Random Glucose 102 Calcium 8.6 Phosphorus Magnesium Total Bilirubin 1.1 AST 72 H ALT 24 Alkaline Phosphatase 76 Troponin I Total Protein 7.4 Albumin 3.5 Globulin 3.9 Albumin/Globulin Ratio 0.9 L Lipase
[2018-05-19] MEDS: Azithromycin 500mg/250ML NS 500 MG/250 ML BAG IVPB SCH (13:05)
[2018-05-19] MEDS: Magnesium Hydroxide Susp 30 ml UD PO SCH (20:35)
[2018-05-19] MEDS: Naproxen 550 mg Tab PO SCH (20:35)
[2018-05-19] MEDS: Abacavir/Lamivudine 600 mg-300 mg Tab PO SCH (20:36)
[2018-05-19] MEDS ORDERED: Home Med 1 UNIT (Melatonin [Melatonin] 5 MG) PO SCH (22:00)
[2018-05-20] MEDS: Enoxaparin 40 mg Syringe SC SCH (09:56)
[2018-05-20] MEDS: Magnesium Hydroxide Susp 30 ml UD PO SCH ×3 (09:56→18:26)
[2018-05-20] MEDS: Pantoprazole 40 mg EC Tab PO SCH (09:56)
[2018-05-20] MEDS: Multiple Vitamins Tab PO SCH (09:56)
[2018-05-20] MEDS: cefTRIAXone IV 1 gm in Dextros 1 GM in Dextrose 5% In Water 50 ML IVPB SCH (10:13)
[2018-05-20] MEDS: Naproxen 550 mg Tab PO SCH ×2 (10:13→18:25)
[2018-05-20] MEDS: Abacavir/Lamivudine 600 mg-300 mg Tab PO SCH ×2 (10:52→18:25)
[2018-05-20] MEDS: Azithromycin 500mg/250ML NS 500 MG/250 ML BAG IVPB SCH (13:23)
--- NOTE | 2018-05-20 16:04 | CP.PCM.PN ---
Subjective - Date & Time of Evaluation Date of Evaluation: 05/20/18 Time of Evaluation: 10:30 - Subjective Subjective: clinically same Objective - Vital Signs/Intake and Output Vital Signs (last 24 hours): Temp Pulse Resp BP Pulse Ox 97.3 F L 70 20 114/76 97 05/20/18 07:15 05/20/18 15:20 05/20/18 07:15 05/20/18 09:57 05/20/18 07:15 - Medications Medications: Current Medications Abacavir/Lamivudine (Epzicom) 1 tab PO BID [facility]; Protocol Last Admin: 05/20/18 10:52 Dose: 1 tab Aspirin (Ecotrin) 81 mg PO DAILY [facility] Last Admin: 05/20/18 09:55 Dose: 81 mg Clopidogrel Bisulfate (Plavix) 75 mg PO DAILY [facility] Last Admin: 05/20/18 09:56 Dose: 75 mg Enoxaparin Sodium (Lovenox) 40 mg SC DAILY [facility] Last Admin: 05/20/18 09:56 Dose: 40 mg Ferrous Sulfate (Feosol) 325 mg PO DAILY [facility] Last Admin: 05/20/18 10:13 Dose: 325 mg Ceftriaxone Sodium 1 gm/ (Dextrose) 100 mls @ 50 mls/30 min IVPB Q12H [facility]; Protocol Last Admin: 05/20/18 10:13 Dose: 50 mls/30 min Azithromycin (Zithromax 500mg In Ns Addvantage) 500 mg in 250 mls @ 167 mls/hr IVPB Q24H [facility]; Protocol Last Admin: 05/20/18 13:23 Dose: 167 mls/hr Ibuprofen (Motrin Tab) 600 mg PO Q6H PRN PRN Reason: Pain, Mild (1-3) Lactulose (Enulose) 20 gm PO BID [facility] Last Admin: 05/20/18 10:04 Dose: Not Given Magnesium Hydroxide (Milk Of Magnesia) 30 ml PO BID [facility] Last Admin: 05/20/18 10:04 Dose: Not Given Metoprolol Tartrate (Lopressor) 25 mg PO BID [facility] Last Admin: 05/20/18 09:57 Dose: 25 mg Mirtazapine (Remeron) 15 mg PO HS [facility] Last Admin: 05/19/18 21:52 Dose: 15 mg Multivitamins (Hexavitamin) 1 tab PO DAILY [facility] Last Admin: 05/20/18 09:56 Dose: 1 tab Naproxen (Anaprox Ds) 550 mg PO BID [facility] Last Admin: 05/20/18 10:13 Dose: 550 mg Pantoprazole Sodium (Protonix Ec Tab) 40 mg PO DAILY [facility] Last Admin: 05/20/18 09:56 Dose: 40 mg Pneumococcal Polyvalent Vaccine (Pneumovax 23 Vaccine) 0.5 ml IM .ONCE ONE Stop: 05/21/18 10:01 Zolpidem Tartrate (Ambien) 5 mg PO HS PRN PRN Reason: Insomnia Last Admin: 05/19/18 23:05 Dose: 5 mg - Labs Labs: 05/19/18 10:51 05/19/18 10:51
[2018-05-20] MEDS: cefTRIAXone IV 1 gm in Dextros 50 ML IVPB SCH (21:19)
[2018-05-21] MEDS: Enoxaparin 40 mg Syringe SC SCH (09:35)
[2018-05-21] MEDS: Pantoprazole 40 mg EC Tab PO SCH (09:36)
[2018-05-21] MEDS: Multiple Vitamins Tab PO SCH (09:36)
[2018-05-21] MEDS: Abacavir/Lamivudine 600 mg-300 mg Tab PO SCH (09:37)
[2018-05-21] MEDS: Magnesium Hydroxide Susp 30 ml UD PO SCH (09:38)
[2018-05-21] MEDS: cefTRIAXone IV 1 gm in Dextros 50 ML IVPB SCH (09:38)
[2018-05-21] MEDS: Naproxen 550 mg Tab PO SCH (09:39)
[2018-05-21] MEDS ORDERED: Pneumococcal 23-Valent Vaccine IM ONE (10:00)
[2018-05-21] MEDS: Azithromycin 500mg/250ML NS 500 MG/250 ML BAG IVPB SCH (11:00)
[2018-05-21 16:42] VITALS: BP 132/86; PULSE 67; RESP 18; TEMP 97.2; O2SAT 95
--- NOTE | 2018-05-21 17:45 | CP.PCM.PN ---
Subjective - Date & Time of Evaluation Date of Evaluation: 05/21/18 Time of Evaluation: 14:00 Objective - Vital Signs/Intake and Output Vital Signs (last 24 hours): Temp Pulse Resp BP Pulse Ox 97.2 F L 67 18 132/86 95 05/21/18 16:00 05/21/18 16:00 05/21/18 16:00 05/21/18 16:00 05/21/18 16:00 - Medications Medications: Current Medications Abacavir/Lamivudine (Epzicom) 1 tab PO BID [facility]; Protocol Last Admin: 05/21/18 09:37 Dose: 1 tab Aspirin (Ecotrin) 81 mg PO DAILY [facility] Last Admin: 05/21/18 09:36 Dose: 81 mg Clopidogrel Bisulfate (Plavix) 75 mg PO DAILY [facility] Last Admin: 05/21/18 09:38 Dose: 75 mg Enoxaparin Sodium (Lovenox) 40 mg SC DAILY [facility] Last Admin: 05/21/18 09:35 Dose: 40 mg Ferrous Sulfate (Feosol) 325 mg PO DAILY [facility] Last Admin: 05/21/18 09:36 Dose: 325 mg Azithromycin (Zithromax 500mg In Ns Addvantage) 500 mg in 250 mls @ 167 mls/hr IVPB Q24H [facility]; Protocol Last Admin: 05/21/18 11:00 Dose: 167 mls/hr Ceftriaxone Sodium (Rocephin Iv 1 Gm Duplex) 50 mls @ 50 mls/30 min IVPB Q12H [facility]; Protocol Last Admin: 05/21/18 09:38 Dose: 50 mls/30 min Ibuprofen (Motrin Tab) 600 mg PO Q6H PRN PRN Reason: Pain, Mild (1-3) Lactulose (Enulose) 20 gm PO BID [facility] Last Admin: 05/21/18 09:37 Dose: Not Given Magnesium Hydroxide (Milk Of Magnesia) 30 ml PO BID [facility] Last Admin: 05/21/18 09:38 Dose: Not Given Metoprolol Tartrate (Lopressor) 25 mg PO BID [facility] Last Admin: 05/21/18 09:38 Dose: 25 mg Mirtazapine (Remeron) 15 mg PO HS [facility] Last Admin: 05/20/18 21:19 Dose: 15 mg Multivitamins (Hexavitamin) 1 tab PO DAILY [facility] Last Admin: 05/21/18 09:36 Dose: 1 tab Naproxen (Anaprox Ds) 550 mg PO BID [facility] Last Admin: 05/21/18 09:39 Dose: 550 mg Pantoprazole Sodium (Protonix Ec Tab) 40 mg PO DAILY [facility] Last Admin: 05/21/18 09:36 Dose: 40 mg Zolpidem Tartrate (Ambien) 5 mg PO HS PRN PRN Reason: Insomnia Last Admin: 05/20/18 21:20 Dose: 5 mg - Labs Labs: 05/19/18 10:51 05/19/18 10:51
== END 2018-05-21 16:55 | DRG 194 ==
LOC: C.ER 19:04 → C.9E 21:39 → C.6T 21:57
PROVIDERS: ADMIT Internal Medicine Nephrology; ATTEND Internal Medicine Nephrology
DX: J18.9 Pneumonia, unspecified organism (principal); I69.351 Hemiplegia and hemiparesis following cerebral infarction affecting right dominant side; J44.0 Chronic obstructive pulmonary disease with (acute) lower respiratory infection; I12.9 Hypertensive chronic kidney disease with stage 1 through stage 4 chronic kidney disease, or unspecified chronic kidney disease; N18.9 Chronic kidney disease, unspecified; Z85.528 Personal history of other malignant neoplasm of kidney; Z87.891 Personal history of nicotine dependence; Z90.5 Acquired absence of kidney; R10.33 Periumbilical pain; Z21 Asymptomatic human immunodeficiency virus [HIV] infection status

== ENCOUNTER 2018-06-21 16:35 | Emergency (ER) | payer MEDICARE, OTHER ==
[2018-06-21 16:39] VITALS: RESP 20
[2018-06-21] MEDS ORDERED: Albuterol-Ipratrop 3 mg / 0.5 (3 ml) UD INH STA (16:53)
[2018-06-21] MEDS ORDERED: Albuterol-Ipratrop 3 mg / 0.5 (3 ml) UD ONE (16:57)
--- NOTE | 2018-06-21 17:21 | C.PDOC ---
History Of Present Illness 63 year old female with a PMHx. of COPD was sent to the ED by shelter for evaluation of cough and congestion for 1 month. The patient notes she is not currently on any medications for COPD. She denies fever, chills, chest pain, and any other associated symptoms. Time Seen by Provider: 06/21/18 16:42 Chief Complaint (Nursing): Cough, Cold, Congestion History Per: Patient History/Exam Limitations: no limitations Onset/Duration Of Symptoms: Other (x1 month. ) Current Symptoms Are (Timing): Still Present Associated Symptoms: denies: Fever, Chills Recent travel outside of the [place]: No Past Medical History Reviewed: Historical Data, Nursing Documentation, Vital Signs Vital Signs: Last Vital Signs Temp 98.2 F 06/21/18 16:36 Pulse 90 06/21/18 16:36 Resp 20 06/21/18 16:36 BP 156/76 H 06/21/18 16:36 Pulse Ox 96 06/21/18 16:36 - Medical History PMH: COPD, CVA, Depression, HIV, HTN, Pneumonia, Chronic Kidney Disease Family History: States: Unknown Family Hx - Social History Hx Alcohol Use: No Hx Substance Use: Yes - Immunization History Hx Influenza Vaccination: Yes Hx Pneumococcal Vaccination: No Review Of Systems Except As Marked, All Systems Reviewed And Found Negative. Constitutional: Negative for: Fever, Chills ENT: Positive for: Nose Congestion Cardiovascular: Negative for: Chest Pain Respiratory: Positive for: Cough Physical Exam - Physical Exam Appears: Well, Non-toxic, No Acute Distress Skin: Warm, Dry Head: Atraumatic, Normacephalic Eye(s): bilateral: Normal Inspection Oral Mucosa: Moist Neck: Normal ROM Chest: Symmetrical Cardiovascular: Rhythm Regular, No Murmur Respiratory: No Rales, No Rhonchi, Wheezing ((+) mild bilateral wheezing.) Gastrointestinal/Abdominal: Normal Exam, Soft, No Tenderness Extremity: Normal ROM (x4) Neurological/Psych: Oriented x3, Normal Speech, Normal Cognition ED Course And Treatment O2 Sat by Pulse Oximetry: 96 (RA) Pulse Ox Interpretation: Normal - Radiology CXR: Interpreted by Me, Viewed By Me CXR Interpretation: Yes: No Acute Disease, COPD. No: Infiltrates, Cardiomegaly Reassessment Condition: Improved Medical Decision Making Medical Decision Making: Initial plan: -CXR -Duoneb Progress/Update: Patient stable for discharge home. Prescribed Ventolin, Levaquin, Mucinex, and Kaletra. Disposition Counseled Patient/Family Regarding: Studies Performed, Diagnosis, Need For Followup, Rx Given - Disposition Disposition: HOME/ ROUTINE Disposition Time: 17:36 Condition: STABLE Prescriptions: Albuterol HFA [Ventolin HFA 90 mcg/actuation (8 g)] 2 puff IH [id number] 7 Days #1 puff Guaifenesin [Mucinex] 600 mg PO BID #14 tab.er.12h Levofloxacin [Levaquin] 500 mg PO DAILY #7 tablet Instructions: Chronic Obstructive Pulmonary Disease (COPD), Including Emphysema Forms: [employer] ([employer]) - POA Present On Arrival: None - Clinical Impression Clinical Impression: COPD exacerbation - Scribe Statement The provider has reviewed the documentation as recorded by the Scribe (Awilda [email or web address]) Provider Attestation: All medical record entries made by the Scribe were at my direction and personally dictated by me. I have reviewed the chart and agree that the record accurately reflects my personal performance of the history, physical exam, medical decision making, and the department course for this patient. I have also personally directed, reviewed, and agree with the discharge instructions and disposition.
--- NOTE | 2018-06-21 18:19 | RAD ---
Date of service: 06/21/2018 HISTORY: cough COMPARISON: Frontal chest radiograph 05/18/2018. FINDINGS: LUNGS: No acute infiltrate bilaterally. Prior left-sided medial pulmonary alveolar changes resolved. Chronic fibrotic changes are seen at the left greater than right medial lung fried bilaterally. PLEURA: No significant pleural effusion identified, no pneumothorax apparent. CARDIOVASCULAR: Calcific atherosclerotic changes are seen related to the thoracic aorta. Normal cardiac size. No pulmonary vascular congestion. OSSEOUS STRUCTURES: No significant abnormalities. VISUALIZED UPPER ABDOMEN: Elevated left hemidiaphragm OTHER FINDINGS: None. IMPRESSION: No acute cardiopulmonary is appreciable. Fibrotic changes are identified bilaterally once again with prior alveolar changes resolved in the interval.
[2018-06-21 18:27] VITALS: BP 144/92; PULSE 75; TEMP 97.7
[2018-06-21 18:31] VITALS: O2SAT 96
== END 2018-06-21 20:22 | disposition home or self-care (01) ==
LOC: C.ER 16:35
DX: J44.1 Chronic obstructive pulmonary disease with (acute) exacerbation (principal); I12.9 Hypertensive chronic kidney disease with stage 1 through stage 4 chronic kidney disease, or unspecified chronic kidney disease; N18.9 Chronic kidney disease, unspecified; Z86.73 Personal history of transient ischemic attack (TIA), and cerebral infarction without residual deficits; F32.9 Major depressive disorder, single episode, unspecified